=== PATIENT | male | born 1955 | race Caucasian/White ===

== ENCOUNTER 2016-04-22 05:27 | Inpatient (IN) ==
[2016-04-22 05:40] LABS: Basophils # 0.1 K/mcL (0.0-0.2); Eosinophils # 0.5 K/mcL (0.0-0.6); Eosinophils % 6.4 %; Hematocrit 41.6 % (37.5-50.1); Hemoglobin 13.6 g/dL (12.9-16.9); Immature Granulocytes % 0.4 % (0-4); Lymphocytes # 2.1 K/mcL (0.6-4.6); Lymphocytes % 29.5 %; Mean Corpuscular HGB Conc 32.7 g/dL (31.6-35.5); Mean Corpuscular Hemoglobin 30.2 pg (28.0-33.3); Mean Corpuscular Volume 92.4 fL (83.0-100.0); Monocytes # 0.6 K/mcL (0.0-1.3); Monocytes % 8.3 %; Neutrophils # 3.7 K/mcL (1.6-8.9); Platelet Count 234 K/mcL (140-400); Red Cell Distribution Width 13.1 % (11.5-14.5); Segmented Neutrophils % 53.4 %
[2016-04-22 05:46] LABS: INR 0.9
[2016-04-22 05:49] LABS: Activated Partial Thrombo Time 30.3 Seconds (26.0-36.0)
--- NOTE | 2016-04-22 05:52 | Emergency Department Note ---
Disposition Clinical Impression: CVA (cerebral vascular accident) Qualifiers: CVA mechanism: unspecified Qualified Code(s): I63.9 - Cerebral infarction, unspecified Disposition: Admitted As Inpatient Condition: Fair Referrals: NO,PCP [Primary Care Provider] - Forms: ED Satisfaction Letter Neuro HPI - General Chief Complaint: ED Neuro Symptoms/Deficit Stated Complaint: Left Sided Weakness Time Seen by Provider: 04/22/16 05:28 Source: patient, EMS Limitations: no limitations Nursing Notes Reviewed: Yes Vital Signs Reviewed: Yes - History of Present Illness HPI Narrative: Patient here for evaluation of neurologic deficits. Patient has a history of multiple TIAs. She has a history of A. fib on sotalol but has not been on Zaroxolyn for the last 2 months due to financial reasons. Patient states last night at 7:30 PM he noticed right-sided visual changes. Patient has had TIAs in the past so did not think much about it. Patient awoke with left-sided vision changes and weakness of the left side. Girlfriend noticed asymmetry of the face and convince the patient to come to the hospital for evaluation. Last known well at 7:30 last night. Patient has not history of TIAs and atrial fibrillation. Patient on sotalol. Patient currently in sinus rhythm. All systems ED: reviewed and negative except as stated. Constitutional: Denies: fever, chills Eyes: Reports: vision change. Denies: eye pain ENT ED: Denies: ear pain, throat pain Cardiovascular: Denies: chest pain Respiratory: Denies: cough, dyspnea Gastrointestinal: Denies: abdominal pain, nausea Genitourinary: Denies: urgency, dysuria Musculoskeletal: Denies: back pain Integumentary: Denies: rash, abrasion Neurological: Reports: weakness, numbness, other (dysarthria) Psychiatric: Denies: anxiety Endocrine: Denies: fatigue Past Medical History - Past Medical History Medical history: Reports: atrial fibrillation, TIA Psychiatric history: Reports: no psych history - Social History Smoking Status: Never smoker Smokeless Tobacco Status: No Alcohol use: Reports: occasionally Drug use: Reports: none Physical Exam - General Limitations: no limitations General appearance: alert - Head Head exam: atraumatic, normocephalic - Eye Eye exam: Present: normal appearance, other (left lateral vision loss.) - ENT ENT exam: normal exam, mucous membranes moist - Neck Neck exam: Present: normal inspection. Absent: tenderness - Chest Chest inspection: Present: normal inspection, symmetric chest wall rise. Absent : tenderness - Respiratory Respiratory exam: Present: normal lung sounds bilaterally. Absent: respiratory distress, wheezes - Cardiovascular Cardiovascular exam: Present: regular rate, normal rhythm - Abdominal Exam Abdominal exam: Present: soft, Non-Tender - Extremities Exam Extremities exam: Present: normal inspection - Neurological Exam Neurological exam: Present: alert, oriented X3 - Expanded Neurological Exam Patient oriented to: Present: person, place, time Speech: Present: expressive aphasia Cranial nerves: EOM function (II, III, IV, ): Normal, facial sensation (V): Abnormal Left, facial palsy (VII): Abnormal Left, gag reflex (IX): Normal, spinal accessory function (XI): Normal, tongue deviation (XII): Normal Cerebellar function: finger to nose: Normal, heel to brito: Normal Motor strength - LUE: 5/5 Motor strength - RUE: 5/5 Motor strength - LLE: 5/5 Motor strength - RLE: 5/5 Upper motor neuron exam: pronator drift: Absent bilaterally Sensory exam upper extremity: light touch: Abnormal Left Sensory exam lower extremity: light touch: Normal Coma Scale Eye Opening: Spontaneous Coma Scale Motor Response: Obeys Commands Coma Scale Verbal Response: Oriented Coma Scale Total: 15 - Psychiatric Psychiatric exam: Present: other (pt unphased by symptoms or exam) - Skin Skin exam: Present: warm, dry Course - Consultations Consultation #1: Discussed with Dr. Lorenzo. Pt accepted. Vital Signs Temperature 97.7 F 04/22/16 05:28 Pulse Rate 64 04/22/16 05:28 Respiratory Rate 16 04/22/16 05:28 Blood Pressure 129/98 04/22/16 05:28 O2 Sat by Pulse Oximetry 98 04/22/16 05:28 Temperature 97.7 F 04/22/16 05:28 Pulse Rate 65 04/22/16 06:28 Respiratory Rate 18 04/22/16 06:28 Blood Pressure 130/95 04/22/16 06:28 O2 Sat by Pulse Oximetry 96 04/22/16 06:28 Oxygen Delivery Oxygen Delivery Room Air Neuro Symptoms/Deficit - Medical Records Medical records reviewed: Yes I reviewed the patient's medical records. - Lab Data Lab results reviewed: Yes I reviewed the patient's lab results. Result diagrams: 04/22/16 05:33 04/22/16 05:33 Lab Results 04/22/16 04/22/16 04/22/16 Range/Units 05:29 05:33 05:33 WBC 7.0 (4.3-11.1) K/mcL RBC 4.50 (4.19-5.50) M/mcL Hgb 13.6 (12.9-16.9) g/dL Hct 41.6 (37.5-50.1) % MCV 92.4 (83.0-100.0) fL MCH 30.2 (28.0-33.3) pg MCHC 32.7 (31.6-35.5) g/dL RDW 13.1 (11.5-14.5) % Plt Count 234 (140-400) K/mcL MPV 10.0 (9.4-12.4) fL Immature Gran % 0.4 (0-4) % Seg Neutrophils % 53.4 % Lymphocytes % 29.5 % Monocytes % 8.3 % Eosinophils % 6.4 % Basophils % 2.0 % Neutrophils # 3.7 (1.6-8.9) K/mcL Lymphocytes # 2.1 (0.6-4.6) K/mcL Monocytes # 0.6 (0.0-1.3) K/mcL Eosinophils # 0.5 (0.0-0.6) K/mcL Basophils # 0.1 (0.0-0.2) K/mcL PT 10.0 (9.4-12.1) Seconds INR 0.9 APTT 30.3 (26.0-36.0) Seconds Sodium (136-145) mEq/L Potassium (3.5-4.5) mEq/L Chloride (98-109) mEq/L Carbon Dioxide (19-29) mEq/L BUN (8-26) mg/dL Creatinine (0.72-1.25) mg/dL Est GFR ( Amer) (> 60) Est GFR (Non-Af Amer) (> 60) BUN/Creatinine Ratio (6-26) Glucose (70-99) mg/dL POC Glucose 122 H (58-89) Calculated Osmolality (280-300) Calcium (8.6-10.8) mg/dL Troponin I (0-0.03) ng/mL 04/22/16 04/22/16 Range/Units 05:33 05:33 WBC (4.3-11.1) K/mcL RBC (4.19-5.50) M/mcL Hgb (12.9-16.9) g/dL Hct (37.5-50.1) % MCV (83.0-100.0) fL MCH (28.0-33.3) pg MCHC (31.6-35.5) g/dL RDW (11.5-14.5) % Plt Count (140-400) K/mcL MPV (9.4-12.4) fL Immature Gran % (0-4) % Seg Neutrophils % % Lymphocytes % % Monocytes % % Eosinophils % % Basophils % % Neutrophils # (1.6-8.9) K/mcL Lymphocytes # (0.6-4.6) K/mcL Monocytes # (0.0-1.3) K/mcL Eosinophils # (0.0-0.6) K/mcL Basophils # (0.0-0.2) K/mcL PT (9.4-12.1) Seconds INR APTT (26.0-36.0) Seconds Sodium 144 (136-145) mEq/L Potassium 4.7 H (3.5-4.5) mEq/L Chloride 111 H (98-109) mEq/L Carbon Dioxide 26 (19-29) mEq/L BUN 19 (8-26) mg/dL Creatinine 1.01 (0.72-1.25) mg/dL Est GFR ( Amer) > 60 (> 60) Est GFR (Non-Af Amer) > 60 (> 60) BUN/Creatinine Ratio 19 (6-26) Glucose 112 H (70-99) mg/dL POC Glucose (58-89) Calculated Osmolality 301 H (280-300) Calcium 9.4 (8.6-10.8) mg/dL Troponin I 0.01 (0-0.03) ng/mL - Radiology Data Radiology results reviewed: Yes I reviewed the patient's radiology results. - EKG Data EKG attestation: Yes I reviewed and interpreted this EKG. EKG results narrative: EKG shows sinus rhythm with rate of 63 bpm. ND interval 160. QRS 92. QTC 459. No previous EKG. NIH Stroke Scale - Level of Consciousness LOC: Alert - LOC Questions LOC Questions: Answers both correctly - LOC Commands LOC Commands: Performs both correctly - Best Gaze Best Gaze: Normal - Visual Visual: Partial hemianopia - Facial Palsy Facial Palsy: Minor asymmetry on smiling, flattened nasolabial fold - Motor Arms Motor Arm-Left: No drift for 10 seconds - Motor Legs Motor Leg-Left: No drift for 5 seconds - Limb Ataxia Limb Ataxia: Absent of affected limb too weak to perform exam - Sensory Sensory: Mild to moderate loss, "not as sharp" - Best Language Best Language: No aphasia - Dysarthria Dysarthria: Mild, slurs some words - Extinction and Inattention Extinction and Inattention: Normal TPA Checklist - LKW: 3-4.5 hrs Add. Contraindications Patient/family understanding: The patient/family members have been counseled and understood the risk, benefit , and alternatives of treatment.
[2016-04-22 05:54] LABS: BUN/Creatinine Ratio 19 (6-26); Blood Urea Nitrogen 19 mg/dL (8-26); Calcium 9.4 mg/dL (8.6-10.8); Carbon Dioxide 26 mEq/L (19-29); Chloride 111 mEq/L (98-109); Glucose 112 mg/dL (70-99); Osmolality,Calculated 301 (280-300); Potassium 4.7 mEq/L (3.5-4.5); Sodium 144 mEq/L (136-145); eGFR For African Americans > 60 (> 60); eGFR For Non-African Americans > 60 (> 60)
--- NOTE | 2016-04-22 06:10 | Emergency Department Note ---
START Narrative - START START: 60-year-old male [id number] by EMS for strokelike symptoms since 7:30 yesterday. Had peripheral visual disturbances then left paramedian paresthesias and paresis. Prior TIAs in the past. Patient's CT shows no acute process labs were essentially within normal limits hospitalist page patient to be admitted for acute CVA versus TIA. This is not a stroke alert based on the time since yesterday evening. We provided 45 minutes of critical care services for this patient.
--- NOTE | 2016-04-22 08:55 | Internal Med History&Physical ---
<Princess Best - Last Filed: 04/22/16 10:04> Date of Encounter: 04/22/16 Time of Encounter: 08:20 Assessment and Plan (1) CVA (cerebral vascular accident) Current visit: Yes Status: Acute - With left homonymous hemianopsia, left facial droop and slurred speech. - Most likely secondary to A-fib thrombi due to lack of adequate anticoagulation. - CT head found no acute intracranial abnormality. - Further stroke work-up: MRI brain without contrast, echocardiogram and bilateral carotid duplex. - Neurology has been consulted. Appreciate neurology input, especially regarding when to restart anticoagulation. - Start aspirin and statin. - PT/OT/speech therapy to evaluate and treat. - Okay to resume diet given patient passed bedside swallow evaluation. - Frequent neuro check and closely monitor including telemetry. Qualifiers: CVA mechanism: unspecified Qualified Code(s): I63.9 - Cerebral infarction, unspecified (2) Paroxysmal atrial fibrillation Current visit: Yes Status: Acute - Currently in sinus rhythm. - Continue Sotalol. - Continue telemetry monitoring. - Case was discussed with Dr. Yan Gonzalez of [facility] regarding long- term anticoagulation choice. Dr. Gonzalez recommends Coumadin. - Appreciate neurology input about when to restart anticoagulation. (3) DVT prophylaxis Current visit: Yes Status: Acute - EPCD for now until further clarification by neurology regarding when to restart anticoagulation. Internal Medicine - H&P: HPI Chief complaint: Stroke Admitted From: Home Plans for Post Hospital Care: Home History of present illness: Mr. Betancur is a 60 year old male with PMH of paroxysmal A-fib on Sotalol but off from Xarelto for two months due to financial problem. Last night patient had right peripheral vision loss which resolved later. Patient feels some right facial tingling when he woke up and went to restroom at around 3:30 am. And patient was noticed to have slurred speech and left facial droop by his girlfriend. Upon my encounter with patient, he still feels some right lower face tingling but states no vision problem. Per patient's girlfriend, patient's speech is still not back to his baseline. He denies focal weakness and other numbness/tingling. Patient denies chest pain, palpitation, dyspnea, headache, nausea/vomiting. Patient reports having history of TIA in the past, with first time affecting right peripheral vision and second time with left hand weakness, both resolved within hours. Past Med Surg Social Fam HX - Past Medical History Medical history: atrial fibrillation (Paroxysmal), TIA Psychiatric history: no psych history - Past Surgical History Surgical History: cataract - Social History Smoking Status: Former smoker Packs per day: used to smoke 1&1/2 pack/day for 30 years, quitted 10 years ago. Smokeless Tobacco Status: No Alcohol use: occasionally Drug use: none - Family History Father Living Status: Hx Family Cancer: Yes (Cancer) Brother Hx Family Cardiac Disorders: Yes (Heart disease) Internal Medicine - H&P: Meds Aspirin 81 mg PO DAILY 04/22/16 [History] Multivitamin [Multi-Day Vitamins] 1 tab PO DAILY 04/22/16 [History] Plant Stanol Elise [Cholest Off] 450 mg PO DAILY 04/22/16 [History] Saw/Vit E/Sod Karine/Lyc/Beta/Pyg [Prostate Health Caplet] 1 tab PO DAILY 04/22/16 [History] Sotalol HCl [Betapace] 120 mg PO Q12H 04/22/16 [History] Allergies No Known Allergies Allergy (Verified 04/22/16 07:17) All Systems PM: A 10-system review of systems was performed and is negative for pertinent findings except as documented above in the HPI. - Constitutional Constitutional: no anorexia, no chills, no fever(s) - EENT Eyes: no change in vision (Patient reports no vision change today) Ears: no decreased hearing Nose, mouth and throat: no dysphagia - Cardiovascular Cardiovascular ROS IM: no chest pain, no edema, no palpitations, no syncope - Respiratory Respiratory: no cough, no dyspnea, no hemoptysis - Gastrointestinal Gastrointestinal: no abdominal pain, no diarrhea, no hematochezia, no melena, no nausea, no vomiting - Genitourinary Genitourinary ROS male: no difficulty urinating, no dysuria, no hematuria - Musculoskeletal Musculoskeletal ROS IM: no arthralgias, no myalgias - Integumentary Integumentary IM: no pruritus, no rash - Neurological Neurological ROS: no focal weakness, no numbness, no tingling - Hematologic/Lymphatic Hematologic/Lymphatic: no easy bleeding, no easy bruising - Constitutional Vitals: Temp Pulse Resp BP Pulse Ox 97.8 F 65 17 146/92 97 04/22/16 07:32 04/22/16 07:32 04/22/16 07:32 04/22/16 07:32 04/22/16 07:32 General appearance: Present: cooperative, A&O X 3, no acute distress, answers questions appropriately - Head Head exam: Present: atraumatic, normocephalic - Eye Eye exam: Present: PERRL, conjuntiva pink, sclera anicteric - Neck Neck exam general surgery: Present: supple, trachea midline. Absent: lymphadenopathy - Respiratory Respiratory exam: Present: CTAB. Absent: accessory muscle use, rales, rhonchi, wheezes - Cardiovascular Cardiovascular exam: Present: RRR, +S1, +S2. Absent: diastolic murmur, gallop, rubs, systolic murmur - GI/Abdominal GI/Abdominal exam: Present: normal bowel sounds, soft, no peritoneal signs. Absent: distended, tenderness - Extremities Exam Extremities exam: Present: warm, radial pulses palpable and symetrical. Absent : calf tenderness, cyanotic, pedal edema - Neurological Exam Neurological exam: Present: oriented X3. Absent: pronater drift, facial droop, speech deficit - Skin Skin exam: Present: dry, intact Internal Med - H&P Results - Labs CBC & Chem 7: 04/22/16 05:33 04/22/16 05:33 <Tu John - Last Filed: 04/22/16 10:25> Date of Encounter: 04/22/16 Internal Medicine - H&P: HPI History of present illness: Mr. Betancur is a 60 year old male All Systems PM: A 10-system review of systems was performed and is negative for pertinent findings except as documented above in the HPI. - Constitutional Vitals: Temp Pulse Resp BP Pulse Ox 97.8 F 65 17 146/92 97 04/22/16 07:32 04/22/16 07:32 04/22/16 07:32 04/22/16 07:32 04/22/16 07:32 Internal Med - H&P Results - Labs CBC & Chem 7: 04/22/16 05:33 04/22/16 05:33 - Attending Attestation I have seen and examined this patient independently. I have discussed the case with the resident, Dr. Best. I agree with the data gathering in the HPI, physical examination findings, assessment and plan as documented by the resident. History of a fib not taking xarelto due to financial reasons. Needs jail AC, might consider coumadin. Will get MRI and neuro consult. The plan of care was discussed in detail with the patient and his family members, they expressed understanding.
[2016-04-22] MEDS ORDERED: Aspirin 325 MG TABLET PO ONE (08:58)
[2016-04-22] MEDS ORDERED: Ondansetron 4 MG/2 ML VIAL IVP PRN (09:10)
[2016-04-22 09:31] LABS: Chol/HDL Ratio 4.4 (0-4.9); Cholesterol 243 mg/dL (< 200); HDL Cholesterol 55 mg/dL (40-59); LDL Cholesterol,Calculated 169 mg/dL (0-99); Triglycerides 97 mg/dL (< 150)
[2016-04-22] MEDS: Acetaminophen 325 MG TABLET PO PRN ×2 (11:27→22:04)
--- NOTE | 2016-04-22 11:44 | Electrocardiograph Report ---
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
--- NOTE | 2016-04-22 15:45 | Neurology - Consult Note ---
Date of Encounter: 04/22/16 Time of Encounter: 15:41 Assessment and Plan (1) CVA (cerebral vascular accident) Current Visit: Yes Status: Acute Unfortunately Mr. Torres has experienced a large infarction involving the territory of the right posterior cerebral artery. I believe that this is due to a cardioembolic phenomenon. He has a history of atrial fibrillation, and has unfortunately not been able to afford his Xarelto for 2 months now. He has been taking aspirin apparently thinking that this would suffice however it has not. Of course if anticoagulation is the treatment of choice for atrial fibrillation. In this case however it is advisable to wait for 3-5 days after a large infarction before reintroducing anticoagulation. The likelihood of early re-embolization is probably low. This gentleman may unfortunately have permanent left hemianopsia. This may affect his driving abilities. Visual field testing should be completed after discharge. Carotid duplex Doppler and echocardiogram pending. The documentation in the history of HPI and plan were at least partially created by [employer] voice recognition technology by Dr. Mendez. Errors in grammar, wording or other phrases may exist. If errors are found after the documentation signed, they will be addressed individually in the addendum section of this document when appropriate. Qualifiers: Qualified Code(s): I63.9 - Cerebral infarction, unspecified History of Present Illness HPI: Mr. Betancur is a 60 year old male who is being seen for neurological consultation secondary to an acute right cerebral hemispheric infarct. Apparently on the day prior to admission which was [id number] he identified some paresthesias first the right face. He had a left facial droop. He also developed a headache and had some difficulty with speech. His girlfriend was present and corroborates this story. He still has a mild headache. At this time denies any paresthesias or weakness. MRI scan of the brain was obtained acutely and is a very large infarct in the region of the right posterior cerebral artery. There is also laminar necrosis present within the infarct. The patient at this time is awake and alert and has no evidence of encephalopathy. He has a known history of atrial fibrillation, however has not been able to afford his medicines due to financial hardships in about 2 months ago. He is already been given aspirin today. Apparently he did not seek immediate medical attention and therefore is not a candidate for thrombolytic therapies. Past Med Surg Social Fam HX - Past Medical History Medical history: atrial fibrillation (Paroxysmal), TIA Psychiatric history: no psych history - Past Surgical History Surgical History: cataract - Social History Smoking Status: Former smoker Packs per day: used to smoke 1&1/2 pack/day for 30 years, quitted 10 years ago. Smokeless Tobacco Status: No Alcohol use: occasionally Drug use: none - Family History Father Living Status: Hx Family Cancer: Yes (Cancer) Brother Hx Family Cardiac Disorders: Yes (Heart disease) Medications and Allergies Aspirin 81 mg PO DAILY 04/22/16 [History] Multivitamin [Multi-Day Vitamins] 1 tab PO DAILY 04/22/16 [History] Plant Stanol Elise [Cholest Off] 450 mg PO DAILY 04/22/16 [History] Saw/Vit E/Sod Karine/Lyc/Beta/Pyg [Prostate Health Caplet] 1 tab PO DAILY 04/22/16 [History] Sotalol HCl [Betapace] 120 mg PO Q12H 04/22/16 [History] Allergies No Known Allergies Allergy (Verified 04/22/16 07:17) All Systems: A 10-system review of systems was performed and is negative for pertinent findings except as documented above in the HPI. Review of Systems: Patient does complain of mild right hemicranial headache, and also identifies some difficulty with a left visual field deficit. Otherwise, the remaining systems reviewed are all negative. Physical Examination - Vital Signs Vital Signs: Initial Vital Signs Temp Pulse Resp BP Pulse Ox 97.7 F 64 16 129/98 98 04/22/16 05:28 04/22/16 05:28 04/22/16 05:28 04/22/16 05:28 04/22/16 05:28 - Neurologic Detailed motor examination: full strength in all major muscle groups Motor examination - right side: 5/5: deltoids, biceps, triceps, wrist flexion, wrist extension, coper hand, hip flexors, tibialis Anterior, quadriceps, toe extension (EHL), plantarflexion Motor examination - left side: 5/5: deltoids, biceps, triceps, wrist flexion, wrist extension, hip flexors, coper hand, quadriceps, tibialis Anterior, toe extension (EHL), plantarflexion Detailed sensory examination: other (Left homonomous hemianopsia.) Reflexes: Biceps: 2+, Triceps: 2+, Brachioradialis: 2+, Patella: 2+, Achilles: 2 + Mental Status Examination: awake, alert, oriented to person, oriented to place, oriented to time, follows commands appropriately, answers questions appropriately, no agnosia, no aphasia, no aproxia Cranial nerve examination: PERRL, EOMI, corneal reflexes brisk symmetrically, sensory to face intact, mastication intact, no facial asymmetry is present, no dysarthria, hearing is intact symmetrically, soft palate elevates bilaterally upon phonation, tongue protrudes midline Cerebellar examination: no dysmetria, performs finger to nose and heel to brito symmetrically without ataxia, no gait ataxia, no truncal ataxia, no difficulty with rapid alternating movements Results - Laboratory Findings CBC and BMP: 04/22/16 05:33 04/22/16 05:33 Abnormal lab findings: Abnormal lab results Potassium 4.7 mEq/L (3.5-4.5) H 04/22/16 05:33 Chloride 111 mEq/L (98-109) H 04/22/16 05:33 Glucose 112 mg/dL (70-99) H 04/22/16 05:33 POC Glucose 122 (58-89) H 04/22/16 05:29 Calculated Osmolality 301 (280-300) H 04/22/16 05:33 Cholesterol 243 mg/dL (< 200) H 04/22/16 05:33 LDL Cholesterol, Calc 169 mg/dL (0-99) H 04/22/16 05:33 Consult Discharge Plan - Plan Referrals: NO,PCP [Primary Care Provider] -
--- NOTE | 2016-04-22 17:50 | Carotid Imaging Report ---
Carotid Duplex Patient Name:Harsh Betancur Order Number:[id number] Procedure Date:04/22/2016 Date:1955ge:60 yrs Gender:Male Lt BP:118 / 75 mmHg Rt.BP:113 / 72 mmHgHeart Rate: Location:[facility] Room #: 3B37 Vocational Services Specialist:Cynthia Jennings Referring MD:Princess Best DO adult secondary education instructor:None Reading MD:Aj Cameron MD Primary Indications:CVA Risk Factors Yes/No Smoker Previous Yes Impressions: The bilateral carotid arteries have minimal plaque throughout. Recommendations: Preliminary noted in patient EMR. Test completed on 04/22/2016 at 4:34:00 pm. Findings Carotid Duplex: Right: The right proximal common carotid artery has a PSV of 106 cm/s and a EDV of 18 cm/s. The right mid common carotid artery has a PSV of 124 cm/s and a EDV of 30 cm/s. The right distal common carotid artery has a PSV of 97 cm/s and a EDV of 29 cm/s. There is nonstenotic plaque in the right bifurcation with a PSV of 56 cm/s and a EDV of 12 cm/s. There is irregular heterogeneous plaque. The right proximal internal carotid artery has a PSV of 60 cm/s and a EDV of 21 cm/s. The right mid internal carotid artery has a PSV of 58 cm/s and a EDV of 24 cm/s. The right distal internal carotid artery has a PSV of 60 cm/s and a EDV of 22 cm/s. The right eca has a PSV of 93 cm/s and a EDV of 24 cm/s. The right vertebral artery has a PSV of 42 cm/s and a EDV of 14 cm/s. There is antegrade spectral Doppler flow patterns. Left: The left proximal common carotid artery has a PSV of 117 cm/s and a EDV of 37 cm/s. The left mid common carotid artery has a PSV of 114 cm/s and a EDV of 37 cm/s. The left distal common carotid artery has a PSV of 124 cm/s and a EDV of 43 cm/s. There is nonstenotic plaque in the left bifurcation with a PSV of 93 cm/s and a EDV of 32 cm/s. The left proximal internal carotid artery has a PSV of 93 cm/s and a EDV of 26 cm/s. The left mid internal carotid artery has a PSV of 71 cm/s and a EDV of 28 cm/s. The left distal internal carotid artery has a PSV of 58 cm/s and a EDV of 25 cm/s. The left eca has a PSV of 90 cm/s and a EDV of 25 cm/s. The left vertebral artery has a PSV of 60 cm/s and a EDV of 21 cm/s. There is antegrade spectral Doppler flow patterns. Prior Study: No prior study available for comparison. Carotid Results Right PSV EDV Assessment Proximal CCA 106 18 Mid CCA 124 30 Distal CCA 97 29 Bifurcation 56 12 Non Stenotic Plaque Proximal ICA 60 21 Mid ICA 58 24 Distal ICA 60 22 ECA 93 24 Vertebral Artery 42 14 Antegrade Flow Left PSV EDV Assessment Proximal CCA 117 37 Mid CCA 114 37 Distal CCA 124 43 Bifurcation 93 32 Non Stenotic Plaque Proximal ICA 93 26 Mid ICA 71 28 Distal ICA 58 25 ECA 90 25 Vertebral Artery 60 21 Antegrade Flow Ratio's Right ICA/CCA Ratio: 0.48 ICA/CCA Values: 60/124 Left ICA/CCA Ratio: 0.82 ICA/CCA Values: 93/114 Updated by Aj Cameron MD on 04/22/2016 5:44:15 PM electronically signed on 04/22/2016 5:44:29 PM with status of Final
[2016-04-23 05:18] LABS: Basophils # 0.1 K/mcL (0.0-0.2); Basophils % 1.5 %; Eosinophils # 0.3 K/mcL (0.0-0.6); Eosinophils % 3.5 %; Hematocrit 39.6 % (37.5-50.1); Hemoglobin 13.3 g/dL (12.9-16.9); Immature Granulocytes % 0.3 % (0-4); Lymphocytes # 2.3 K/mcL (0.6-4.6); Lymphocytes % 26.5 %; Mean Corpuscular HGB Conc 33.6 g/dL (31.6-35.5); Mean Corpuscular Hemoglobin 30.9 pg (28.0-33.3); Mean Corpuscular Volume 92.1 fL (83.0-100.0); Mean Platelet Volume 10.7 fL (9.4-12.4); Monocytes # 0.7 K/mcL (0.0-1.3); Monocytes % 7.5 %; Neutrophils # 5.3 K/mcL (1.6-8.9); Platelet Count 218 K/mcL (140-400); Red Cell Distribution Width 13.2 % (11.5-14.5); Segmented Neutrophils % 60.7 %
[2016-04-23 05:36] LABS: Alanine Aminotransferase 21 Units/L (0-55); Albumin/Globulin Ratio 0.9 (1.1-2.2); Alkaline Phosphatase 86 Units/L (38-126); Aspartate Amino Transferase 20 Units/L (5-34); BUN/Creatinine Ratio 15 (6-26); Bilirubin,Total 0.5 mg/dL (0.2-1.2); Blood Urea Nitrogen 15 mg/dL (8-26); Calcium 8.8 mg/dL (8.6-10.8); Carbon Dioxide 25 mEq/L (19-29); Chloride 108 mEq/L (98-109); Globulin 3.4 g/dL (2.4-3.5); Glucose 105 mg/dL (70-99); Osmolality,Calculated 293 (280-300); Sodium 141 mEq/L (136-145); Total Protein 6.4 g/dL (6.0-8.3); eGFR For African Americans > 60 (> 60); eGFR For Non-African Americans > 60 (> 60)
--- NOTE | 2016-04-23 07:24 | ECHO - Doppler Report ---
Echocardiogram Name: Harsh Betancur Date of Study: 04/22/2016 Date: 1955 Ht: 72.0 in Medical Record#: [id number] Age: 60 Wt: 198.0 lb Gender: Male BSA: 2.12 Order #: [id number] Location: [facility] Room #: 3B37 Reading Physician: Sebastian Lacey MD, [facility] Tableau Report Developer: Cynthia Jennings Ordering Physician: Princess Best DO Primary Physician: None Indications: Cerebrovascular Accident Impressions: Normal left ventricular size and systolic function, LVEF 60-65%. Normal left ventricular diastolic function. Normal right ventricular size and function. Mild mitral regurgitation. No evidence of pulmonary hypertension. Patient refused agitated saline contrast study. Left Ventricular Wall Motion: Rest Echo Findings All wall segments showed normal motion. Findings: Study Quality * Technically adequate exam. ECG Findings * Sinus rhythm and sinus bradycardia. Left Ventricle * Normal left ventricular size and systolic function, LVEF 60-65%. * Normal LV wall thickness. * Normal left ventricular diastolic function. Right Ventricle * Normal right ventricular size and function. Left Atrium * Normal left atrial size. Right Atrium * Normal right atrial size. Aorta * Normally sized aortic root. Pericardium * There is no pericardial effusion present. IVC * The IVC is not well evaluated. Aortic Valve * Trileaflet aortic valve. * No aortic stenosis. * No aortic regurgitation. Mitral Valve * Normal mitral valve structure. * No mitral stenosis. * Mild mitral regurgitation. Tricuspid Valve * Tricuspid valve not well visualized. * No tricuspid stenosis. * Trace tricuspid regurgitation. * No evidence of pulmonary hypertension. Pulmonic Valve * Pulmonic valve not well visualized. * No pulmonic stenosis. * No pulmonic regurgitation. Interatrial Septum * Patient refused agitated saline contrast study. History Family History of CAD 08/25/2015 a Previous Echo was performed. Measurements: BP: 113/ 72 2D Normal Values RVIDd: 2.62 cm IVSd: 1.00 cm 0.6 - 1.0 cm LVIDd: 5.50 cm 3.7 - 5.6 cm LVPWd: .90 cm 0.6 - 1.1 cm LVIDs: 3.20 cm 1.5 - 3.6 cm AO: 3.10 cm < 4.0 cm LA volume: 50 Mitral Valve Peak E:.77 m/sec Peak A:.64 m/sec E/A Ratio:1.2 Peak E' Lat Nicolas:12.9 cm/s Peak E' Med Nicolas:8.95 cm/s E/E' Lat Ratio:6 E/E' Med Ratio:8.6 Tricuspid Valve TV Regurg Peak Grad: 25.00mmHg TV Regurg Peak Nicolas: 2.50m/sec Updated by Sebastian Lacey MD, [facility] on 04/23/2016 7:11:45 AM electronically signed on 04/23/2016 7:20:18 AM with status of Final Wall Motion Mcclelland: 1=Normal, 2=Hypokinesis, 3=Akinesis, 4=Dyskinesis, 5=Aneurysmal, 6=Hyperkinetic, X=Not Visualized (Blank)=Missing
[2016-04-23] MEDS: Aspirin 81 MG TAB.CHEW PO SCH (09:10)
--- NOTE | 2016-04-23 09:45 | Internal Med Progress Note ---
<Maryana Lyons - Last Filed: 04/23/16 11:06> Date of Encounter: 04/23/16 Time of Encounter: 08:45 - Assessment and plan (1) CVA (cerebral vascular accident) Current Visit: Yes Status: Acute Assessment and plan: Pt has history of atrial fibrillation and has not been able to afford his Xarelto for two months Continued left homonymous hemianopsia Left facial droop and slurred speech improved CT head found no acute intracranial abnormality MRI brain demonstrated moderate sized acute infarct ivolving posterior aspect of right temporal lobe, possible component of cotical laminar necrosis, mild atrophy Carotid duplex demonstrated minimal plaque thorughout bilateral carotid arteries Echo demonstrated EF of 60-65%, normal left ventricular diastolic function, normal right ventricular size and function, mild mitral regurgitation, no evidence of pulmonary hypertension Neurology consulted: Reported it is advisable to wait 3-5 days after a large infarction before reintroducing anticoagulation, recommended visual field testing to be completed after discharge PT/OT, Speech, Social work consulted Qualifiers: CVA mechanism: unspecified Qualified Code(s): I63.9 - Cerebral infarction, unspecified (2) Paroxysmal atrial fibrillation Current Visit: Yes Status: Acute Assessment and plan: Continue Sotalol Irregular rhythm on exam, pulse rate 135 at 0639 this morning prior to receiving medication, will continue to monitor and make adjustments accordingly Case was discussed with Dr. Yan Gonzalez of [facility] regarding long-term anticoagulation choice and Coumadin was recommended. Will follow neurology recommendation on when to restart anticoagulation (3) DVT prophylaxis Current Visit: Yes Status: Acute Assessment and plan: EPCD for now - Subjective Interval history: Pt resting comfortably in bed. Admits to headache and not being able to see anything in his left visual field. He denies any weakness, numbness or tingling. - Constitutional Vitals: Temp Pulse Resp BP Pulse Ox 98.7 F 135 16 118/77 95 04/23/16 06:39 04/23/16 06:39 04/23/16 06:39 04/23/16 06:39 04/23/16 06:39 General appearance: Present: cooperative, A&O X 3, no acute distress, answers questions appropriately - Head Head exam: Present: atraumatic, normocephalic - Eye Eye exam: Present: PERRL, conjuntiva pink, sclera anicteric Pupils: Present: PERRL - Neck Neck exam general surgery: Present: supple, trachea midline. Absent: lymphadenopathy - Respiratory Respiratory exam: Present: CTAB. Absent: accessory muscle use, rales, rhonchi, wheezes - Cardiovascular Cardiovascular exam: Present: irregular rhythm. Absent: diastolic murmur, gallop, rubs, systolic murmur - GI/Abdominal GI/Abdominal exam: Present: normal bowel sounds, soft, no peritoneal signs. Absent: distended, tenderness - Extremities Exam Extremities exam: Present: warm, radial pulses palpable and symetrical. Absent : calf tenderness, cyanotic, pedal edema - Neurological Exam Neurological exam: Present: alert, oriented X3, strengths equal and symetr throughout. Absent: pronater drift, facial droop, speech deficit Additional comments: Deficit in left visual field - Skin Skin exam: Present: dry, intact Internal Medicine: Result - Labs CBC & Chem 7: 04/23/16 03:59 04/23/16 03:59 Labs: Short CBC 04/23/16 Range/Units 03:59 WBC 8.8 (4.3-11.1) K/mcL Hgb 13.3 (12.9-16.9) g/dL Hct 39.6 (37.5-50.1) % Plt Count 218 (140-400) K/mcL Neutrophils # 5.3 (1.6-8.9) K/mcL BMP 04/23/16 03:59 Sodium 141 Potassium 4.0 Chloride 108 Carbon Dioxide 25 BUN 15 Creatinine 1.03 Glucose 105 H Calcium 8.8 Liver Function 04/23/16 Range/Units 03:59 Total Bilirubin 0.5 (0.2-1.2) mg/dL AST 20 (5-34) Units/L ALT 21 (0-55) Units/L Alkaline Phosphatase 86 (38-126) Units/L Albumin 3.0 L (3.5-5.0) g/dL - ABG Interpretation ABG results: PT/INR, D-dimer PT 10.0 Seconds (9.4-12.1) 04/22/16 05:33 - Impressions Impressions Brain MRI 04/22/16 08:55 IMPRESSION: Moderate-sized acute infarct involving the posterior aspect of the right temporal lobe. There may be a component of cortical laminar necrosis. Mild atrophy. D/ / 04/22/2016 11:18:22 Rommel Tyler MD / neeru Interpreting Provider: Rommel Tyler MD Consult Discharge Plan - Plan Referrals: NO,PCP [Primary Care Provider] - <Lui Diana - Last Filed: 04/23/16 17:26> Date of Encounter: 04/23/16 - Assessment and plan (1) CVA (cerebral vascular accident) Current Visit: Yes Status: Acute Qualifiers: CVA mechanism: embolism Precerebral and cerebral artery: posterior cerebral artery Laterality of affected vessel: right Qualified Code(s): I63.431 - Cerebral infarction due to embolism of right posterior cerebral artery (2) Paroxysmal atrial fibrillation Current Visit: Yes Status: Acute - Constitutional Vitals: Temp Pulse Resp BP Pulse Ox 98.8 F 132 16 109/73 97 04/23/16 15:40 04/23/16 15:40 04/23/16 15:40 04/23/16 15:40 04/23/16 15:40 Internal Medicine: Result - Labs CBC & Chem 7: 04/23/16 03:59 04/23/16 03:59 - ABG Interpretation ABG results: PT/INR, D-dimer PT 10.0 Seconds (9.4-12.1) 04/22/16 05:33 - Attending Attestation I examined this patient and my medical decision-making was reviewed with the Resident Physician. I agree with the documented findings, disposition and treatment plan as described except to the extent set forth below. Mr. Betancur is currently in observation due to acute CVA. He remains moderate to high risk for further neurologic decompensation and cardiac issues with rapid atrial fibrillation. Mr. Betancur vision is essentially the same. He has no new neuro findings. Denies CP or SOB. No GI symptoms. Exam Alert. Comfortable Hemianopsia on L still present Heart tachy and irregular Lungs clear I/P 1. Acute CVA 2. A fib Further diagnoses and plan as above.
[2016-04-23] MEDS: *HR* HYDROcodone/Acet 5/325 mg TABLET PO PRN ×2 (09:51→15:38)
[2016-04-23] MEDS: *HR* Metoprolol 5 MG/5 ML VIAL IVP PRN ×2 (15:31→23:02)
[2016-04-24] MEDS ORDERED: Multivit/Ca/Min/Fe/FA 1 TAB TABLET PO SCH (09:00)
[2016-04-24] MEDS: *HR* HYDROcodone/Acet 5/325 mg TABLET PO PRN (09:09)
[2016-04-24] MEDS: Aspirin 81 MG TAB.CHEW PO SCH (09:09)
[2016-04-24 11:00] VITALS: BP 107/65
--- NOTE | 2016-04-24 13:11 | Discharge Summary ---
Date of Encounter: 04/24/16 Time of Encounter: 13:09 - Discharge Diagnosis (1) CVA (cerebral vascular accident) Priority: Primary Status: Acute Qualifiers: CVA mechanism: embolism Precerebral and cerebral artery: posterior cerebral artery Laterality of affected vessel: right Qualified Code(s): I63.431 - Cerebral infarction due to embolism of right posterior cerebral artery (2) Paroxysmal atrial fibrillation Priority: Secondary Status: Acute (3) Left homonymous hemianopsia Priority: Secondary Status: Acute - Discharge Medications Prescriptions: Atorvastatin [Lipitor] 40 mg PO HS #30 tablet Dabigatran [Pradaxa] 150 mg PO BID #60 capsule Home Medications: Aspirin 81 mg PO DAILY 04/22/16 [History] Multivitamin [Multi-Day Vitamins] 1 tab PO DAILY 04/22/16 [History] Plant Stanol Elise [Cholest Off] 450 mg PO DAILY 04/22/16 [History] Saw/Vit E/Sod Karine/Lyc/Beta/Pyg [Prostate Health Caplet] 1 tab PO DAILY 04/22/16 [History] Sotalol HCl [Betapace] 120 mg PO Q12H 04/22/16 [History] Atorvastatin [Lipitor] 40 mg PO HS #30 tablet 04/24/16 [Rx] Dabigatran [Pradaxa] 150 mg PO BID #60 capsule 04/24/16 [Rx] Allergies/Adverse Reactions: Allergies No Known Allergies Allergy (Verified 04/22/16 07:17) Date of admission: 04/23/16 12:23 Primary care physician: PCP NO Consults: Neurology - Dr. Mendez Discharging clinician: Lui Diana Anticipated date of discharge: 04/24/16 - Patient Status Disposition: Home, Self-Care Condition: Fair Functional capacity at discharge: independent ambulation Overall status at discharge: patient is progressing back to baseline - Discharge Instructions Follow Up With: NO,PCP [Primary Care Provider] - Additional Instructions: Follow with Dr. Mendez in 2-[address] Sumi TAYLOR. Follow with ophthalmology within the week. - Diet and Activity Activity: increase activity as tolerated Diet: advance to your usual diet Hospital course: Mr. Betancur is a 60 year old male with hx of atrial fibrillation on Sotalol presented to ED with acute visual changes. He was evaluated and found to have acute stroke and subsequently admitted. Mr. Betancur was admitted to [facility]. He was evaluated by Dr. Mendez and found to have acute stroke on R. Due to changes on MRI, anticoagulation held for -5 days. He was noted to be in rapid atrial fibrillation and given IV Lopressor. Ultimately he converted to sinus rhythm. In discussion with the patient it was found that he had not been taking his Xarelto due to cost. On 04/24/2016 he was in NSR and BP was good. Headache seemed better. At that time he was discharged home with further outpatient follow up. He will be started on Pradaxa 150mg BID on Monday and follow up with Dr. Jonas. - Time Spent with Patient Total time spent providing and/or coordinating discharge services: 38min - Constitutional Vitals: Temp Pulse Resp BP Pulse Ox 98.3 F 59 14 107/65 95 04/24/16 11:00 04/24/16 11:00 04/24/16 11:00 04/24/16 11:00 04/24/16 11:00 General appearance: Present: cooperative, A&O X 3, no acute distress, answers questions appropriately - Head Head exam: Present: normocephalic - Eye Additional comments: Hemianopsia present on L. - ENT ENT exam: Present: mucous membranes dry - Respiratory Respiratory exam: Present: CTAB. Absent: rhonchi, wheezes - Cardiovascular Cardiovascular exam: Present: RRR. Absent: tachycardia - GI/Abdominal GI/Abdominal exam: Present: soft. Absent: mass, tenderness - Extremities Exam Extremities exam: Present: warm. Absent: pedal edema - Neurological Exam Neurological exam: Present: alert, oriented X3 - Skin Skin exam: Present: dry, warm. Absent: rash
--- NOTE | 2016-05-04 09:06 | Electrocardiograph Report ---
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
== END 2016-04-24 13:58 | disposition home or self-care (01) | DRG 66 ==
LOC: 3BNU 05:27 → EMEROO 05:27 → SUATTDRO 06:47 → 3BNU 07:34
PROVIDERS: ADMIT Internal Medicine; ATTEND Internal Medicine

== ENCOUNTER 2017-01-02 17:47 | Observation (INO) ==
[2017-01-02] MEDS ORDERED: *HR* Acetaminophen w/Cod 300-30 mg 1 TAB TABLET PO ONE (18:35)
--- NOTE | 2017-01-02 19:06 | Emergency Department Note ---
Disposition Clinical Impression: Atrial fibrillation with RVR, Left hip pain Disposition: Still a Patient Condition: Fair Referrals: Oz Azevedo DO [Primary Care Provider] - Forms: ED Satisfaction Letter Back Pain HPI - General Chief Complaint: ED Back Pain/Injury Stated Complaint: hip pain Time Seen by Provider: 01/02/17 18:10 Source: patient Mode of arrival: private vehicle Limitations: no limitations Nursing Notes Reviewed: Yes Vital Signs Reviewed: Yes - History of Present Illness Pt Subjective Complaint: back pain Onset (ago): month(s) (2) Duration: constant Similar Symptoms Previously: Yes (many years ago had similar pain but it didn't last this long) Location: Other (left buttock) Pain Severity: moderate, severe Quality: sharp, stabbing Radiation: left leg (from buttock to left hamstring) Improves with: none Worsens with: walking Context: unknown Associated symptoms: Reports: difficulty walking (due to pain). Denies: numbness, weakness, incontinence of bowel/bladder, fever, chills, abdominal pain , dysuria, hematuria Treatments prior to arrival: cold therapy, heat therapy, other (Physical therapy ) - Related Data Home Medications Medication Instructions Recorded Confirmed Aspirin 81 mg PO DAILY 04/22/16 05/04/16 Multivitamin [Multi-Day Vitamins] 1 tab PO DAILY 04/22/16 05/04/16 Saw/Vit E/Sod Karine/Lyc/Beta/Pyg 1 tab PO DAILY 04/22/16 05/04/16 [Prostate Health Caplet] Ascorbic Acid [Vitamin C] 1,000 mg PO DAILY 05/04/16 05/04/16 Previous Rx's Medication Instructions Recorded Atorvastatin [Lipitor] 40 mg PO HS #30 tablet 04/24/16 Apixaban [Eliquis] 5 mg PO BID #60 tablet 05/06/16 Atorvastatin [Lipitor] 40 mg PO HS tablet 05/06/16 Diltiazem CD (24hr) [Cardizem CD] 120 mg PO DAILY #30 cap.er.24h 05/06/16 Metoprolol [Lopressor] 25 mg PO BID #60 tablet 05/06/16 Cyclobenzaprine [Flexeril] 10 mg PO HS PRN #10 tablet 12/05/16 HYDROcodone/Acet 5/325 mg [[place] 1 tab PO HS PRN #7 tab 12/05/16 5-325 mg] Trazodone HCl 0 tab PO HS PRN #10 tablet 12/05/16 Allergies Allergy/AdvReac Type Severity Reaction Status Date / Time No Known Allergies Allergy Verified 01/02/17 18:08 All systems ED: reviewed and negative except as stated. Review of Systems: As Per HPI Constitutional: Denies: fever, chills, weakness Cardiovascular: Denies: chest pain, palpitations, dyspnea on exertion, orthopnea , edema, syncope Respiratory: Denies: cough, dyspnea, wheezes Gastrointestinal: Denies: abdominal pain, nausea, vomiting Genitourinary: Denies: urgency, dysuria, frequency, hematuria, discharge, testicular pain Musculoskeletal: Reports: as per HPI, arthralgia, myalgia Integumentary: Denies: rash Neurological: Denies: weakness, numbness, paresthesias Hematological/Lymphatic: Reports: easy bleeding (on Eliquis), easy bruising Past Medical History - Past Medical History Attestation: Yes The following information was validated with the patient. Source: patient Medical history: Reports: CVA, seizures, other Surgical history: Reports: cataract Psychiatric history: Reports: no psych history - Social History Smoking Status: Never smoker Smokeless Tobacco Status: No Alcohol use: Reports: none Drug use: Reports: none Physical Exam - General Limitations: no limitations General appearance: alert, in no apparent distress - Head Head exam: atraumatic, normocephalic, normal inspection - Eye Eye exam: Present: normal appearance, PERRL. Absent: scleral icterus, conjunctival injection, periorbital swelling - ENT ENT exam: mucous membranes moist - Neck Neck exam: Present: normal inspection - Chest Chest inspection: Present: normal inspection - Respiratory Respiratory exam: Present: normal lung sounds bilaterally. Absent: respiratory distress, wheezes - Cardiovascular Cardiovascular exam: Present: tachycardia, irregular rhythm. Absent: systolic murmur, diastolic murmur - Abdominal Exam Abdominal exam: Present: soft, Non-Tender. Absent: mass, pulsatile mass - Extremities Exam Extremities exam: Present: normal inspection, full ROM, normal capillary refill. Absent: tenderness, pedal edema, calf tenderness - Expanded Lower Extremity Exam Hip/Pelvis exam: Present: normal inspection, full ROM (increased pain with left hip flexion), tenderness (left SI joint and Gluteus), pelvis stable. Absent: swelling, deformity, crepitus, dislocation, external rotation, internal rotation , shortening Upper leg exam: Present: normal inspection. Absent: tenderness Knee exam: Present: normal inspection, full ROM, knee extension intact. Absent : tenderness Lower leg exam: Present: normal inspection, Achilles tendon intact. Absent: tenderness, Homans' sign Ankle exam: Present: normal inspection, full ROM. Absent: tenderness, swelling Foot/toe exam: Present: normal inspection, full ROM. Absent: tenderness, swelling Neurovascular/Tendon exam: Present: normal capillary refill, normal fine/light touch. Absent: pulse deficit, motor deficit, sensory deficit, tendon deficit, extremity cold to touch, pallor, foot drop, significant pain with passive ROM of distal joint - Back Exam Back exam: Present: normal inspection, tenderness (mild sacrum - left), paraspinal tenderness, sciatic notch tenderness (L). Absent: CVA tenderness (R) , CVA tenderness (L), muscle spasm - Neurological Exam Neurological exam: Present: alert, oriented X3, CN II-XII intact, normal gait, reflexes normal. Absent: motor sensory deficit - Psychiatric Psychiatric exam: Present: normal affect, normal mood - Skin Skin exam: Present: warm, dry, intact, normal color Course Course Narrative: Patient presents from home with his for evaluation of left hip pain. He actually points to the left mid buttock and left SI joint as the site of pain. It has been present for about eight weeks. He saw his primary care provider and was sent to physical therapy. He had his third physical therapy appointment this morning. And the pain has gotten worse instead of better. The pain does not get better with movement and he has normal DP, PT pulses, therefore, I do not suspect intermittent claudication as the cause of pain. He has history of two ischemic strokes and is currently on Eliquis. He has atrial fibrillation, and was recently switched from sotalol to metoprolol. His heart rate is currently 120, EKG has been ordered along with x-rays of his hip and back and pain medication. EKG shows A. fib with RVR, rate is 170. Patient will be moved out of the fast- track area to a medical bed for further evaluation and treatment. Vital Signs Temperature 97.7 F 01/02/17 18:05 Pulse Rate 120 01/02/17 18:05 Respiratory Rate 16 01/02/17 18:05 Blood Pressure 109/69 01/02/17 18:05 O2 Sat by Pulse Oximetry 98 01/02/17 18:05 Temperature 97.7 F 01/02/17 18:05 Pulse Rate 120 01/02/17 18:05 Respiratory Rate 16 01/02/17 18:05 Blood Pressure 109/69 01/02/17 18:05 O2 Sat by Pulse Oximetry 98 01/02/17 18:05 Oxygen Delivery Oxygen Delivery Room Air
[2017-01-02 20:03] LABS: Basophils # 0.1 K/mcL (0.0-0.2); Basophils % 0.9 %; Eosinophils # 0.2 K/mcL (0.0-0.6); Eosinophils % 1.8 %; Hematocrit 41.2 % (37.5-50.1); Hemoglobin 13.8 g/dL (12.9-16.9); Immature Granulocytes % 0.2 % (0-4); Lymphocytes # 2.8 K/mcL (0.6-4.6); Lymphocytes % 29.9 %; Mean Corpuscular HGB Conc 33.5 g/dL (31.6-35.5); Mean Corpuscular Hemoglobin 29.5 pg (28.0-33.3); Mean Platelet Volume 9.6 fL (9.4-12.4); Monocytes # 0.9 K/mcL (0.0-1.3); Monocytes % 9.5 %; Neutrophils # 5.3 K/mcL (1.6-8.9); Platelet Count 289 K/mcL (140-400); Red Blood Count 4.68 M/mcL (4.19-5.50); Red Cell Distribution Width 12.9 % (11.5-14.5); Segmented Neutrophils % 57.7 %
[2017-01-02 20:08] LABS: INR 1.1; Prothrombin Time 12.4 Seconds (9.4-12.1)
[2017-01-02 20:11] LABS: Activated Partial Thrombo Time 33.3 Seconds (26.0-36.0)
[2017-01-02] MEDS ORDERED: *HR* Morphine 2 MG/ML SYRINGE IVP ONE (20:11)
[2017-01-02 20:16] LABS: BUN/Creatinine Ratio 15 (6-26); Blood Urea Nitrogen 16 mg/dL (8-26); Calcium 10.1 mg/dL (8.6-10.8); Carbon Dioxide 22 mEq/L (19-29); Chloride 105 mEq/L (98-109); Glucose 99 mg/dL (70-99); Osmolality,Calculated 289 (280-300); Potassium 3.8 mEq/L (3.5-4.5); Sodium 139 mEq/L (136-145); eGFR For African Americans > 60 (> 60); eGFR For Non-African Americans > 60 (> 60)
--- NOTE | 2017-01-02 20:34 | Emergency Department Note ---
Disposition Clinical Impression: Atrial fibrillation with RVR, Left hip pain Disposition: Admitted As Inpatient Condition: Good Referrals: Oz Azevedo DO [Primary Care Provider] - Forms: ED Satisfaction Letter Time of Disposition: 20:58 Back Pain HPI - General Chief Complaint: ED Back Pain/Injury Stated Complaint: hip pain Time Seen by Provider: 01/02/17 18:10 Source: patient Limitations: no limitations Nursing Notes Reviewed: Yes Vital Signs Reviewed: Yes - History of Present Illness HPI Narrative: accepted sign out from the PA. This was orginally a melvina who has been expereincing incresed left hip pain and low back pain and has a history of atrial fibrillation and has a HR of 170. Melvina states that his HR is teneous and wasmost recently had his rate controlled medications changed from sotaolol to metorpolo and his HR usually ranges aroun 80s with atrial fibrillation. Melvina denies chest pain or shortness of breath and states that he did have increased caffiene in his diet today in addition to anxiety and pain from his hip. denies nausea, vomitting, chest pain, or shortness of breaeth. Similar Symptoms Previously: Yes (many years ago had similar pain but it didn't last this long) Pain Severity: moderate, severe Quality: sharp, stabbing Radiation: left leg (from buttock to left hamstring) Improves with: none Worsens with: walking Associated symptoms: Reports: difficulty walking (due to pain). Denies: numbness, weakness, incontinence of bowel/bladder, fever, chills, abdominal pain , dysuria, hematuria Treatments prior to arrival: cold therapy, heat therapy, other (Physical therapy ) - Related Data Home Medications Medication Instructions Recorded Confirmed Aspirin 81 mg PO DAILY 04/22/16 05/04/16 Multivitamin [Multi-Day Vitamins] 1 tab PO DAILY 04/22/16 05/04/16 Saw/Vit E/Sod Karine/Lyc/Beta/Pyg 1 tab PO DAILY 04/22/16 05/04/16 [Prostate Health Caplet] Ascorbic Acid [Vitamin C] 1,000 mg PO DAILY 05/04/16 05/04/16 Previous Rx's Medication Instructions Recorded Atorvastatin [Lipitor] 40 mg PO HS #30 tablet 04/24/16 Apixaban [Eliquis] 5 mg PO BID #60 tablet 05/06/16 Atorvastatin [Lipitor] 40 mg PO HS tablet 05/06/16 Diltiazem CD (24hr) [Cardizem CD] 120 mg PO DAILY #30 cap.er.24h 05/06/16 Metoprolol [Lopressor] 25 mg PO BID #60 tablet 05/06/16 Cyclobenzaprine [Flexeril] 10 mg PO HS PRN #10 tablet 12/05/16 HYDROcodone/Acet 5/325 mg [Morrice 1 tab PO HS PRN #7 tab 12/05/16 5-325 mg] Trazodone HCl 0 tab PO HS PRN #10 tablet 12/05/16 Allergies Allergy/AdvReac Type Severity Reaction Status Date / Time No Known Allergies Allergy Verified 01/02/17 18:08 Constitutional: Denies: fever, chills, weakness Cardiovascular: Denies: chest pain, palpitations, dyspnea on exertion, orthopnea , edema, syncope Respiratory: Denies: cough, dyspnea, wheezes Gastrointestinal: Denies: abdominal pain, nausea, vomiting Genitourinary: Denies: urgency, dysuria, frequency, hematuria, discharge, testicular pain Musculoskeletal: Reports: as per HPI, arthralgia, myalgia Integumentary: Denies: rash Neurological: Denies: weakness, numbness, paresthesias Hematological/Lymphatic: Reports: easy bleeding (on Eliquis), easy bruising Past Medical History - Past Medical History Medical history: Reports: CVA, seizures, other Surgical history: Reports: cataract Psychiatric history: Reports: no psych history - Social History Smoking Status: Never smoker Smokeless Tobacco Status: No Alcohol use: Reports: none Drug use: Reports: none Physical Exam - General Limitations: no limitations General appearance: alert, in no apparent distress - Head Head exam: atraumatic, normocephalic, normal inspection - Eye Eye exam: Present: normal appearance, PERRL, EOMI - Expanded Eye Exam Pupils: Left: reactive - ENT ENT exam: normal exam, normal oropharynx, mucous membranes moist - Expanded ENT Exam External ear exam: Present: normal external inspection Mouth exam: Present: normal external inspection Teeth exam: Present: normal inspection Throat exam: Present: normal inspection - Neck Neck exam: Present: normal inspection, full ROM, trachea midline - Chest Chest inspection: Present: normal inspection, symmetric chest wall rise - Respiratory Respiratory exam: Present: normal lung sounds bilaterally - Cardiovascular Cardiovascular exam: Present: tachycardia, irregular rhythm, normal heart sounds - Abdominal Exam Abdominal exam: Present: soft, Non-Tender. Absent: tenderness, distention, guarding, rebound, rigidity - Extremities Exam Extremities exam: Present: normal inspection, full ROM. Absent: tenderness, pedal edema - Expanded Upper Extremity Exam Shoulder exam: Present: normal inspection, full ROM Arm exam: Present: normal inspection, full ROM Elbow exam: Present: normal inspection, full ROM Forearm/Wrist exam: Present: normal inspection, full ROM Hand exam: Present: normal inspection, full ROM Vascular exam: Normal: capillary refill, radial pulse - Expanded Lower Extremity Exam Hip/Pelvis exam: Present: normal inspection, full ROM Upper leg exam: Present: normal inspection, full ROM Knee exam: Present: normal inspection, full ROM Lower leg exam: Present: normal inspection, full ROM Ankle exam: Present: normal inspection, full ROM Foot/toe exam: Present: normal inspection, full ROM Neurovascular/Tendon exam: Absent: motor deficit, sensory deficit, tendon deficit - Back Exam Back exam: Present: normal inspection, full ROM. Absent: tenderness - Neurological Exam Neurological exam: Present: alert, oriented X3 - Expanded Neurological Exam Patient oriented to: Present: person, place, time Coma Scale Eye Opening: Spontaneous Coma Scale Motor Response: Obeys Commands Coma Scale Verbal Response: Oriented Coma Scale Total: 15 - Psychiatric Psychiatric exam: Present: normal affect, normal mood - Skin Skin exam: Present: warm, dry, intact, normal color Course Course Narrative: we tala do cardiac workup in addition to cardizem/cardizem drip and monitor. Will likely admit to medicine - Reevaluation(s) Reevaluation #1: melvina HR has improved to 101 with cardizem push, we are waitin remy the drip. Melvina has agreed to stay for admission. stabe, no acute distress Time: 20:58 - Consultations Consultation #1: discussed case with Dr. Suarez and he has accepted patient for admission. Time: 20:58 Vital Signs Temperature 97.7 F 01/02/17 18:05 Pulse Rate 120 01/02/17 18:05 Respiratory Rate 16 01/02/17 18:05 Blood Pressure 109/69 01/02/17 18:05 O2 Sat by Pulse Oximetry 98 01/02/17 18:05 Temperature 97.7 F 01/02/17 18:05 Pulse Rate 120 01/02/17 18:05 Respiratory Rate 16 01/02/17 18:05 Blood Pressure 109/69 01/02/17 18:05 O2 Sat by Pulse Oximetry 98 01/02/17 18:05 Oxygen Delivery Oxygen Delivery Room Air Back Pain/Injury - Lab Data Result diagrams: 01/02/17 19:55 01/02/17 19:55 Lab Results 01/02/17 01/02/17 01/02/17 Range/Units 19:55 19:55 19:55 WBC 9.3 (4.3-11.1) K/mcL RBC 4.68 (4.19-5.50) M/mcL Hgb 13.8 (12.9-16.9) g/dL Hct 41.2 (37.5-50.1) % MCV 88.0 (83.0-100.0) fL MCH 29.5 (28.0-33.3) pg MCHC 33.5 (31.6-35.5) g/dL RDW 12.9 (11.5-14.5) % Plt Count 289 (140-400) K/mcL MPV 9.6 (9.4-12.4) fL Immature Gran % 0.2 (0-4) % Seg Neutrophils % 57.7 % Lymphocytes % 29.9 % Monocytes % 9.5 % Eosinophils % 1.8 % Basophils % 0.9 % Neutrophils # 5.3 (1.6-8.9) K/mcL Lymphocytes # 2.8 (0.6-4.6) K/mcL Monocytes # 0.9 (0.0-1.3) K/mcL Eosinophils # 0.2 (0.0-0.6) K/mcL Basophils # 0.1 (0.0-0.2) K/mcL PT 12.4 H (9.4-12.1) Seconds INR 1.1 APTT 33.3 (26.0-36.0) Seconds Sodium 139 (136-145) mEq/L Potassium 3.8 (3.5-4.5) mEq/L Chloride 105 (98-109) mEq/L Carbon Dioxide 22 (19-29) mEq/L BUN 16 (8-26) mg/dL Creatinine 1.10 (0.72-1.25) mg/dL Est GFR ( Amer) > 60 (> 60) Est GFR (Non-Af Amer) > 60 (> 60) BUN/Creatinine Ratio 15 (6-26) Glucose 99 (70-99) mg/dL Calculated Osmolality 289 (280-300) Calcium 10.1 (8.6-10.8) mg/dL Troponin I (0-0.03) ng/mL 01/02/17 Range/Units 19:55 WBC (4.3-11.1) K/mcL RBC (4.19-5.50) M/mcL Hgb (12.9-16.9) g/dL Hct (37.5-50.1) % MCV (83.0-100.0) fL MCH (28.0-33.3) pg MCHC (31.6-35.5) g/dL RDW (11.5-14.5) % Plt Count (140-400) K/mcL MPV (9.4-12.4) fL Immature Gran % (0-4) % Seg Neutrophils % % Lymphocytes % % Monocytes % % Eosinophils % % Basophils % % Neutrophils # (1.6-8.9) K/mcL Lymphocytes # (0.6-4.6) K/mcL Monocytes # (0.0-1.3) K/mcL Eosinophils # (0.0-0.6) K/mcL Basophils # (0.0-0.2) K/mcL PT (9.4-12.1) Seconds INR APTT (26.0-36.0) Seconds Sodium (136-145) mEq/L Potassium (3.5-4.5) mEq/L Chloride (98-109) mEq/L Carbon Dioxide (19-29) mEq/L BUN (8-26) mg/dL Creatinine (0.72-1.25) mg/dL Est GFR ( Amer) (> 60) Est GFR (Non-Af Amer) (> 60) BUN/Creatinine Ratio (6-26) Glucose (70-99) mg/dL Calculated Osmolality (280-300) Calcium (8.6-10.8) mg/dL Troponin I 0.00 (0-0.03) ng/mL - EKG Data EKG attestation: Yes I reviewed and interpreted this EKG. EKG results narrative: atrial fibrillation with rate of 170. NO STEMI. changed from 12/21/16. 1914
[2017-01-02] MEDS ORDERED: 0.9 % Sodium Chloride 1,000 ML ONE (21:05)
--- NOTE | 2017-01-02 21:09 | Internal Med History&Physical ---
Date of Encounter: 01/02/17 Time of Encounter: 21:05 Assessment and Plan (1) Atrial fibrillation with RVR Current visit: No Status: Resolved EKG reveals Atrial fibrillation with rate of 170. No STEMI. Changed from 12/21/16 Cardizem ggt discontinued due to hypotension. Digoxin 0.25mg IV ordered. Continue IVF. Repeat EKG in AM. CXR negative. Echo ordered. Initial troponin 0.00, trend Troponin. TSH pending. [id number] score 3. Patient reports taking Eliquis and was switched from Sotolol to Metoprolol after hospitalization for similar episode on 05/06/16. Patient sees Dr. Jonas in clinic and reports stopping Cardizem PO and Sotalol. Continue to monitor. (2) Left hip pain Current visit: Yes Status: Acute X-ray reveals no acute osseous abnormality of the left hip or sacrum/coccyx. No acute osseous abnormality in L-spine. Multifocal mild degenerative change. Given the degree of osteopenia, nondisplaced fractures may be radiographically occult. If pain or concern for fracture persists, consider MR imaging. Patient reports much improvement with Morphine in ED. Will give Flexeril and Percocet prn pain. Continue to monitor (3) History of CVA (cerebrovascular accident) Current visit: No Status: Chronic Continue anticoagulation. (4) Seizure disorder Current visit: Yes Status: Acute Continue home meds. (5) DVT prophylaxis Current visit: No Status: Acute Continue Eliquis. Internal Medicine - H&P: HPI Admitted From: Home Plans for Post Hospital Care: Home History of present illness: Mr. Betancur is a 61 year old male with PMH of paroxysmal A-fib, ischemic stroke x2, seizures, and chronic back pain that presents complaining of constant , sharp stabbing left sided back pain radiating to his left hamstring since participating in physical therapy today. Pain is moderate in severity and worse with walking and ROM. Patient reports similar pain for the past 8 months and has tried muscle relaxants, OTC pain medications, and heat/ cold packs without relief. He reports drinking lots of coffee today secondary to anxiety from his hip pain. In the ED, patient started c/o palpitations after laying on his left side during x-rays of his hip and back. EKG revealed A. fib with RVR, rate 170 in the ED. Patient reports taking Eliquis and was switched from Sotolol to Metoprolol after hospitalization for similar episode on 05/06/16. Patient sees Dr. Jonas in clinic and reports stopping Cardizem PO and Sotalol. Patient denies fever, chills, CP, SOB, abd pain, N/V/D, thyroid disease, edema, incontinence of bowel/bladder, or recent illness. is at bedside. Past Med Surg Social Fam HX - Past Medical History Medical history: atrial fibrillation, CVA, seizures, other Psychiatric history: no psych history - Past Surgical History Surgical History: cataract - Social History Smoking Status: Never smoker Smokeless Tobacco Status: No Alcohol use: none Drug use: none - Family History Father Living Status: Hx Family Cancer: Yes (Cancer) Brother Hx Family Cardiac Disorders: Yes (Heart disease) Internal Medicine - H&P: Meds Apixaban [Eliquis] 5 mg PO BID #60 tablet 05/06/16 [Rx] Atorvastatin [Lipitor] 40 mg PO HS tablet 05/06/16 [Rx] Metoprolol [Lopressor] 25 mg PO BID #60 tablet 05/06/16 [Rx] Acetaminophen [Tylenol] 500 mg PO Q6H PRN 01/02/17 [History] Gabapentin [Neurontin] 300 mg PO TID 01/02/17 [History] LevETIRAcetam [Keppra] 500 mg PO BID 01/02/17 [History] 3 Allergy/AdvReac Type Severity Reaction Status Date / Time No Known Allergies Allergy Verified 01/02/17 18:08 All Systems PM: A 10-system review of systems was performed and is negative for pertinent findings except as documented above in the HPI. - Constitutional Constitutional: no chills, no fatigue, no fever(s), no weight gain, no weight loss - EENT Eyes: no change in vision, no loss of vision Nose, mouth and throat: no dysphagia, no nasal congestion, no sinus pressure - Cardiovascular Cardiovascular ROS IM: irregular heart rhythm, palpitations, no chest pain, no lightheadedness - Respiratory Respiratory: no cough, no dyspnea, no chest congestion - Gastrointestinal Gastrointestinal: constipation (2 days since last BM), no abdominal pain, no diarrhea, no nausea, no vomiting - Genitourinary Genitourinary ROS male: no dysuria, no urinary frequency, no urinary urgency - Musculoskeletal Musculoskeletal ROS IM: back pain, myalgias, no neck pain, no numbness, no stiffness, no tingling - Integumentary Integumentary IM: no erythema, no rash - Neurological Neurological ROS: no convulsions, no dizziness, no numbness, no tingling, no weakness - Psychiatric Psychiatric: anxiety, no depression - Endocrine Endocrine IM: no polydipsia, no polyphagia, no polyuria - Hematologic/Lymphatic Hematologic/Lymphatic: easy bruising (due to blood thinners) - Constitutional Vitals: Temp Pulse Resp BP Pulse Ox 97.7 F 90 13 92/66 97 01/02/17 18:05 01/02/17 21:03 01/02/17 21:03 01/02/17 21:03 01/02/17 21:03 General appearance: Present: A&O X 3, pleasant, no acute distress, answers questions appropriately - Head Head exam: Present: atraumatic, normal inspection, normocephalic - Eye Eye exam: Present: EOMI, PERRL - ENT ENT exam: Present: mucous membranes moist, normal oropharynx - Neck Neck exam general surgery: Present: full ROM, supple. Absent: lymphadenopathy, tenderness, thyromegaly - Respiratory Respiratory exam: Present: CTAB. Absent: rhonchi, wheezes - Cardiovascular Cardiovascular exam: Present: irregular rhythm, +S1, +S2, tachycardia. Absent: systolic murmur - GI/Abdominal GI/Abdominal exam: Present: normal bowel sounds, soft. Absent: distended, firm , guarding, rebound, tenderness - Extremities Exam Extremities exam: Present: full ROM, normal inspection, warm, radial pulses palpable and symmetrical. Absent: tenderness Additional comments: positive straight leg raise on the left - Back Exam Back exam: Present: normal inspection. Absent: CVA tenderness (L), CVA tenderness (R), muscle spasm, paraspinal tenderness, tenderness, vertebral tenderness - Neurological Exam Neurological exam: Present: alert, oriented X3, strengths equal and symetr throughout. Absent: altered - Psychiatric Psychiatric exam: Present: normal affect, normal mood - Skin Skin exam: Present: dry, normal color, warm. Absent: rash Internal Med - H&P Results - Labs CBC & Chem 7: 01/02/17 19:55 01/02/17 19:55 - EKG Data When compared to previous EKG: there are significant changes (atrial fibrillation with rate of 170. No STEMI. changed from 12/21/16) - Impressions Impressions Hip X-Ray 01/02/17 18:35 IMPRESSION: No acute osseous abnormality of the left hip or sacrum/coccyx. Given the degree of osteopenia, nondisplaced fractures may be radiographically occult. If pain or concern for fracture persists, consider MR imaging. D/ / 01/02/2017 19:21:35 Chirag Krueger MD / tiffanie Interpreting Provider: Chirag Krueger MD Lumbar Spine X-Ray 01/02/17 18:35 IMPRESSION: No acute osseous abnormality Multifocal mild degenerative change D/ / Aj Zimmerman / Aj Zimmerman Interpreting Provider: Aj Zimmerman Sacrum and Coccyx X-Ray 01/02/17 18:35 IMPRESSION: No acute osseous abnormality of the left hip or sacrum/coccyx. Given the degree of osteopenia, nondisplaced fractures may be radiographically occult. If pain or concern for fracture persists, consider MR imaging. D/ / 01/02/2017 19:21:35 Chirag Krueger MD / tiffanie Interpreting Provider: Chirag Krueger MD Chest X-Ray 01/02/17 19:41 IMPRESSION: Stable portable study D/ / Chelly Camara Cha, MD / Chelly Camara Cha, MD Interpreting Provider: Chelly Camara Cha, MD
[2017-01-02] MEDS ORDERED: *HR* Digoxin 0.5 MG/2 ML AMPUL IVP ONE (22:38)
[2017-01-02] MEDS: 0.9 % Sodium Chloride 1,000 ML IVC SCH (22:54)
--- NOTE | 2017-01-02 23:01 | Event Note ---
Date of Encounter: 01/02/17 Time of Encounter: 22:59 Patient and examined with medical social worker. Presents mainly with pain in the left thigh. In the ER was found to be in AFib with RVR. Mentioned that sotalol was recently switched to metoprolol. Relatively hypotensive. Will give the patient IV digoxin for rate control. Hydration. Physical therapy occupational therapy for left thigh pain. Pain control
[2017-01-02] MEDS: *HR* OxyCODONE/APAP 5/325 TABLET PO PRN (23:31)
[2017-01-03] MEDS ORDERED: Ketorolac 30 MG/ML VIAL IM ONE (02:48)
[2017-01-03] MEDS ORDERED: *HR* Heparin 5,000 UNIT/ML VIAL SQ SCH (06:00)
[2017-01-03] MEDS: *HR* OxyCODONE/APAP 5/325 TABLET PO PRN ×2 (06:37→19:01)
[2017-01-03] MEDS: 0.9 % Sodium Chloride 1,000 ML IVC SCH (06:38)
[2017-01-03 07:10] LABS: Alanine Aminotransferase 47 Units/L (0-55); Albumin/Globulin Ratio 0.9 (1.1-2.2); Alkaline Phosphatase 119 Units/L (38-126); Aspartate Amino Transferase 28 Units/L (5-34); BUN/Creatinine Ratio 16 (6-26); Bilirubin,Total 0.5 mg/dL (0.2-1.2); Blood Urea Nitrogen 16 mg/dL (8-26); Carbon Dioxide 27 mEq/L (19-29); Chloride 108 mEq/L (98-109); Globulin 3.5 g/dL (2.4-3.5); Glucose 97 mg/dL (70-99); Magnesium 1.8 mg/dL (1.6-2.6); Osmolality,Calculated 295 (280-300); Potassium 4.5 mEq/L (3.5-4.5); Sodium 142 mEq/L (136-145); Total Protein 6.5 g/dL (6.0-8.3); eGFR For African Americans > 60 (> 60); eGFR For Non-African Americans > 60 (> 60)
[2017-01-03 07:25] LABS: Thyroid Stimulating Hormone 2.749 mcIU/mL (0.350-4.840)
[2017-01-03] MEDS: levETIRAcetam 250 MG TABLET PO SCH ×2 (10:49→20:50)
[2017-01-03] MEDS: APIXABAN 5 MG TABLET PO SCH ×2 (10:49→20:50)
[2017-01-03] MEDS: Gabapentin 300 MG CAPSULE PO SCH ×3 (10:50→20:50)
--- NOTE | 2017-01-03 11:21 | Cardiology Consult Note ---
Date of Encounter: 01/03/17 Time of Encounter: 11:21 Assessment and Plan (1) Paroxysmal atrial fibrillation Current Visit: Yes Status: Acute Known hx of PAF, previously failed Sotalol. Anticoagulated on Eliquis. Was being managed on Cardizem CD 120mg daily and Lopressor 25mg BID as rate control strategy as outpt. Found to be in A-Fib RVR when seen by Dr. Jonas in November. Pt presented to ED for sciatic leg pain, found to be in A-Fib RVR rate 170s. Low BP, so pt was given one dose of IV digoxin. Pt converted back to SR ~0135. He denies chest pain, dypsnea or palpitations. Reports having drank a large coffee prior to A-Fib episode. K 4.5, Mag 1.8, TSH 2.749. Troponins negative x 2. Echo 04/22/16 EF 60%, normal LV, RV size and function. Holter 12/22/16: SR, rare PACs and PVCs. Given recurrence of PAF on both outpt and inpt setting, recommend attempt rhythm control with a different antiarrhythmic agent, Rythmol 150mg Q8hrs. Baseline EKG QRS 90, QT/QTc 472/462ms from 12/21/16 when in SR. No recent ischemic evaluation. Will proceed with stress test today and if negative, start Rythmol this afternoon. Pt will need monitored for 5 doses and will obtain daily EKGs to monitor QRS. Pt verbalizes understanding, willing to stay for antiarrhythmic therapy. Pt reports missing one dose of Eliquis last night. If DCCV is warranted, will require SABINA. Discussion w patient/family: The assessment and plan as outlined above was discussed with the patient and/or family members who expressed understanding and agreement. All questions were answered. Thank you for involving us in the care of your patient. Please call with any questions. I will discuss all the above with Dr. Yan Gonzalez and make changes as necessary. History of Present Illness Consult date: 01/03/17 Requesting physician: Robert Suarez Consult reason: PAF Chief complaint: left leg pain History of present illness: Mr. Betancur is a 61 year old male with PMH of PAF and prior CVA. He was recently seen by Dr. Jonas 12/27/16 for PAF. He has failed Sotalol, was stopped 11/2016. As outpt was attempting rate control strategy on Cardizem CD 120mg daily and Lopressor 25mg BID. He is anticoagulated on Eliquis. He presented to ED yesterday evening due to left leg/hip pain due to sciatica. He was found to be in A-Fib RVR HR 170s and admitted. He was given a dose of IV digoxin. Pt has since converted back to SR. He denied any chest pain, palpitations or dyspnea while in A-Fib. He reports drinking a large coffee prior to presentation, which usually triggers his A-Fib. No cardiac complaints today. Only complaint is left leg pain. Cardiology consulted for PAF recommendations. Prior CV testing: TTE 04/22/16: LVEF 60-65%. Normal LV, RV size and function. Mild MR. No phtn. Holter 12/22/16: Rare PACs and PVCs. Past Med Surg Social Fam HX - Past Medical History Medical history: atrial fibrillation, CVA, seizures, other Psychiatric history: no psych history - Past Surgical History Surgical History: cataract - Social History Smoking Status: Never smoker Smokeless Tobacco Status: No Alcohol use: none Drug use: none - Family History Father Living Status: Hx Family Cancer: Yes (Cancer) Brother Hx Family Cardiac Disorders: Yes (Heart disease) Medications and Allergies Apixaban [Eliquis] 5 mg PO BID #60 tablet 05/06/16 [Rx] Atorvastatin [Lipitor] 40 mg PO HS tablet 05/06/16 [Rx] Metoprolol [Lopressor] 25 mg PO BID #60 tablet 05/06/16 [Rx] Acetaminophen [Tylenol] 500 mg PO Q6H PRN 01/02/17 [History] Gabapentin [Neurontin] 300 mg PO TID 01/02/17 [History] LevETIRAcetam [Keppra] 500 mg PO BID 01/02/17 [History] 3 Allergy/AdvReac Type Severity Reaction Status Date / Time No Known Allergies Allergy Verified 01/02/17 18:08 All Systems Review: A 10-system review of systems was performed and is negative for pertinent findings except as documented above in the HPI. Physical Examination Vital Signs, Last 4 Hours Temp Pulse Resp BP Pulse Ox 01/03/17 10:56 72 127/88 01/03/17 08:00 97.6 F 62 18 106/76 95 Vital Signs Temp Pulse Resp BP Pulse Ox 01/03/17 10:56 72 127/88 01/03/17 08:00 97.6 F 62 18 106/76 95 01/03/17 04:53 97.6 F 63 18 97/71 96 01/02/17 22:21 96 01/02/17 21:46 97.5 F L 136 18 98/78 96 01/02/17 21:17 16 92/66 01/02/17 21:03 90 13 92/66 97 01/02/17 18:05 97.7 F 120 16 109/69 98 Intake and Output 01/02/17 01/03/17 01/03/17 23:59 07:59 15:59 Intake Total 0 / 0 1000 / 1000 Output Total 0 / 0 Balance 0 / 0 1000 / 1000 Intake: IV Fluids 1000 / 1000 0.9 % Sodium Chloride 1, 1000 / 1000 000 ML @ 125 mls/hr IVC . Q8H [facility] Rx#:[id number] Oral 0 / 0 0 / 0 Output: Urine 0 / 0 Other: # Voids 2 Weight 80.8 kg 80.8 kg Patient Weight 01/03/17 23:59 Weight 80.8 kg General: Conversant, No Apparent Distress HEENT: Atraumatic, Normocephaly, Mucus Membranes Moist Neck: No JVD, Normal carotid pulses Cardiac: Reg Rate and Rhythm, Normal S1 and S2, No Murmur Lungs: Normal Breath Sounds, No Wheeze, Rales, Rhonchi Neuro: Alert and responsive, No focal deficits noted Abdomen: Soft, Non-Tender Skin: No rashes noted on visualized skin Musculoskeletal: No Chest Wall Tenderness Extremities: No Clubbing, No Cyanosis, No Edema, Normal Pulses Results 01/02/17 19:55 01/03/17 06:23 Lab Results 01/03/17 01/03/17 06:23 06:23 Sodium 142 Potassium 4.5 Chloride 108 Carbon Dioxide 27 BUN 16 Creatinine 1.01 Glucose 97 Calcium 9.0 Magnesium 1.8 Total Bilirubin 0.5 AST 28 ALT 47 Alkaline Phosphatase 119 Troponin I 0.00 TSH 2.749 Short CBC 01/02/17 Range/Units 19:55 WBC 9.3 (4.3-11.1) K/mcL Hgb 13.8 (12.9-16.9) g/dL Hct 41.2 (37.5-50.1) % Plt Count 289 (140-400) K/mcL Neutrophils # 5.3 (1.6-8.9) K/mcL BMP 01/03/17 01/02/17 Range/Units 06:23 19:55 Sodium 142 139 (136-145) mEq/L Potassium 4.5 3.8 (3.5-4.5) mEq/L Chloride 108 105 (98-109) mEq/L Carbon Dioxide 27 22 (19-29) mEq/L BUN 16 16 (8-26) mg/dL Creatinine 1.01 1.10 (0.72-1.25) mg/dL Glucose 97 99 (70-99) mg/dL Calcium 9.0 10.1 (8.6-10.8) mg/dL Cardiac Enzymes 01/03/17 01/02/17 Range/Units 06:23 19:55 Troponin I 0.00 0.00 (0-0.03) ng/mL Liver Function 01/03/17 Range/Units 06:23 Total Bilirubin 0.5 (0.2-1.2) mg/dL AST 28 (5-34) Units/L ALT 47 (0-55) Units/L Alkaline Phosphatase 119 (38-126) Units/L Albumin 3.0 L (3.5-5.0) g/dL Impressions Hip X-Ray 01/02/17 18:35 IMPRESSION: No acute osseous abnormality of the left hip or sacrum/coccyx. Given the degree of osteopenia, nondisplaced fractures may be radiographically occult. If pain or concern for fracture persists, consider MR imaging. D/ / 01/02/2017 19:21:35 Chirag Krueger MD / [facility] Interpreting Provider: Chirag Krueger MD Lumbar Spine X-Ray 01/02/17 18:35 IMPRESSION: No acute osseous abnormality Multifocal mild degenerative change D/ / Aj Zimmerman / Aj Zimmerman Interpreting Provider: Aj Zimmerman Sacrum and Coccyx X-Ray 01/02/17 18:35 IMPRESSION: No acute osseous abnormality of the left hip or sacrum/coccyx. Given the degree of osteopenia, nondisplaced fractures may be radiographically occult. If pain or concern for fracture persists, consider MR imaging. D/ / 01/02/2017 19:21:35 Chirag Krueger MD / [facility] Interpreting Provider: Chirag Krueger MD Chest X-Ray 01/02/17 19:41 IMPRESSION: Stable portable study D/ / Chelly Camara Cha, MD / Chelly Camara Cha, MD Interpreting Provider: Chelly Camara Cha, MD Active Medications Apixaban (Eliquis) 5 mg PO BID [facility] Stop: 07/05/17 09:01 Last Admin: 01/03/17 10:49 Dose: 5 mg Atorvastatin Calcium (Lipitor) 40 mg PO HS [facility] Stop: 07/05/17 21:01 Cyclobenzaprine HCl (Flexeril) 10 mg PO HS [facility] Stop: 07/04/17 22:16 Last Admin: 01/02/17 22:34 Dose: 10 mg Gabapentin (Neurontin) 300 mg PO TID [facility] Stop: 07/05/17 09:01 Last Admin: 01/03/17 10:50 Dose: 300 mg Sodium Chloride (0.9 % Sodium Chloride) 1,000 mls @ 125 mls/hr IVC .Q8H [facility] Stop: 01/03/17 22:44 Last Admin: 01/03/17 06:38 Dose: 125 mls/hr Levetiracetam (Keppra) 500 mg PO BID [facility] Stop: 07/05/17 09:01 Last Admin: 01/03/17 10:49 Dose: 500 mg Metoprolol Tartrate (Lopressor) 25 mg PO BID [facility] Stop: 07/05/17 09:01 Last Admin: 01/03/17 10:49 Dose: 25 mg Oxycodone/Acetaminophen (Percocet 5/325) 1 each PO Q6HR PRN PRN Reason: Pain Stop: 07/04/17 22:10 Last Admin: 01/03/17 06:37 Dose: 1 each - Imaging and Cardiology Echo: report reviewed - EKG Interpretation EKG results cardiology: personally reviewed (A-Fib RVR rate 170), other (12 hr tele AVG HR 79, PAF. Was A-Fib until converted to SR ~0135.) Consult Discharge Plan - Plan Referrals: Oz Azevedo DO [Primary Care Provider] -
[2017-01-03] MEDS ORDERED: Regadenoson 0.4 MG/5 ML SYRINGE IVP ONE (11:25)
[2017-01-03] MEDS ORDERED: Ketorolac 30 MG/ML VIAL IVP ONE (12:00)
--- NOTE | 2017-01-03 14:25 | Electrocardiograph Report ---
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
[2017-01-03] MEDS: *HR* HYDROmorphone (PF) 1 MG/ML SYRINGE IVP PRN ×2 (15:03→20:52)
--- NOTE | 2017-01-03 20:25 | Internal Med Progress Note ---
Date of Encounter: 01/03/17 Time of Encounter: 09:00 - Assessment and plan (1) Paroxysmal atrial fibrillation Current Visit: Yes Status: Acute Assessment and plan: Converts to sinus rhythm now. On Eliquis for anticoagulation. Cardiology consult appreciated, rhythmol placed for rhythm control. (2) DVT prophylaxis Current Visit: No Status: Acute Assessment and plan: On Eliquis. (3) History of CVA (cerebrovascular accident) Current Visit: No Status: Chronic Assessment and plan: Continue Eliquis and atorvastatin (4) Left hip pain Current Visit: Yes Status: Acute Assessment and plan: MRI of L-Spine and hip shows disc protrusion on L4-5 and severe left hip osteoarthritis. No fracture. - Continue pain management. - Patient needs to see pain management as outpatient (5) Seizure disorder Current Visit: Yes Status: Acute Assessment and plan: Continue Keppra - Time Spent With Patient 25 - 35 minutes - Subjective Interval history: Patient is a 61-year-old male admitted for A. fib with RVR. His past medical history is significant for paroxysmal A. fib, history of CVA. Patient was seen and examined. Still complaining of left hip pain radiated to lateral femoral area. No palpitation. Heart rhythm converts to sinus. - Constitutional Vitals: Temp Pulse Resp BP Pulse Ox 97.8 F 70 18 136/93 96 01/03/17 15:23 01/03/17 15:23 01/03/17 15:23 01/03/17 15:23 01/03/17 15:23 General appearance: Present: A&O X 3, pleasant, no acute distress, answers questions appropriately - Head Head exam: Present: atraumatic, normocephalic - Eye Eye exam: Present: PERRL, conjuntiva pink, sclera anicteric Pupils: Present: PERRL - Neck Neck exam general surgery: Present: supple, trachea midline. Absent: lymphadenopathy - Respiratory Respiratory exam: Present: CTAB. Absent: accessory muscle use, rales, rhonchi, wheezes - Cardiovascular Cardiovascular exam: Present: RRR, +S1, +S2. Absent: diastolic murmur, gallop, rubs, systolic murmur - GI/Abdominal GI/Abdominal exam: Present: normal bowel sounds, soft, no peritoneal signs. Absent: distended, tenderness - Extremities Exam Extremities exam: Present: tenderness (Tenderness on left at femorus and buttock ), warm, radial pulses palpable and symmetrical. Absent: calf tenderness, cyanotic, pedal edema - Neurological Exam Neurological exam: Present: CN II-XII intact, oriented X3, no focal deficits. Absent: pronater drift, facial droop, speech deficit - Skin Skin exam: Present: dry, intact Internal Medicine: Result - Labs CBC & Chem 7: 01/02/17 19:55 01/03/17 06:23 Labs: BMP 01/03/17 06:23 Sodium 142 Potassium 4.5 Chloride 108 Carbon Dioxide 27 BUN 16 Creatinine 1.01 Glucose 97 Calcium 9.0 Cardiac Enzymes 01/03/17 Range/Units 06:23 Troponin I 0.00 (0-0.03) ng/mL Liver Function 01/03/17 Range/Units 06:23 Total Bilirubin 0.5 (0.2-1.2) mg/dL AST 28 (5-34) Units/L ALT 47 (0-55) Units/L Alkaline Phosphatase 119 (38-126) Units/L Albumin 3.0 L (3.5-5.0) g/dL - ABG Interpretation ABG results: PT/INR, D-dimer PT 12.4 Seconds (9.4-12.1) H 01/02/17 19:55 - Impressions Impressions Femur MRI 01/03/17 15:21 IMPRESSION: Severe left hip osteoarthritis. Moderate tendinosis of the left gluteus medius and minimus. Left greater trochanteric bursal thickening, nonspecific, however this can be seen in the setting of bursitis. D/ /03/2017 19:08:10 Andrew Owens MD / ghassan Interpreting Provider: Andrew Owens MD Hip MRI 01/03/17 15:21 IMPRESSION: Severe left hip osteoarthritis. Moderate tendinosis of the left gluteus medius and minimus. Left greater trochanteric bursal thickening, nonspecific, however this can be seen in the setting of bursitis. D/ /03/2017 19:08:10 Andrew Owens MD / ghassan Interpreting Provider: Andrew Owens MD Lumbar Spine MRI 01/03/17 15:21 IMPRESSION: Disc protrusion with caudal migration at L4-5 resulting in effacement of the left lateral recess and impingement of the traversing left L5 nerve root. D/ / William Fields MD / William Fields MD Interpreting Provider: William Fields MD Consult Discharge Plan - Plan Referrals: Oz Azevedo DO [Primary Care Provider] -
[2017-01-04] MEDS: *HR* OxyCODONE/APAP 5/325 TABLET PO PRN ×2 (05:05→18:26)
[2017-01-04] MEDS: Gabapentin 300 MG CAPSULE PO SCH ×3 (08:11→21:54)
[2017-01-04] MEDS: levETIRAcetam 250 MG TABLET PO SCH ×2 (08:11→21:54)
[2017-01-04] MEDS: APIXABAN 5 MG TABLET PO SCH ×2 (08:11→21:54)
[2017-01-04] MEDS: *HR* HYDROmorphone (PF) 1 MG/ML SYRINGE IVP PRN ×2 (08:13→21:53)
--- NOTE | 2017-01-04 12:09 | Cardiology Progress Note ---
Date of Encounter: 01/04/17 Time of Encounter: 12:07 Assessment and Plan (1) Paroxysmal atrial fibrillation Current Visit: Yes Status: Acute Known hx of PAF, previously failed Sotalol. Anticoagulated on Eliquis. Pt presented to ED for sciatic leg pain, found to be in A-Fib RVR rate 170s. Low BP, so pt was given one dose of IV digoxin, converted back to SR. Echo 04/22/16 EF 60%, normal LV, RV size and function. Holter 12/22/16: SR, rare PACs and PVCs. Given recurrence of PAF on both outpt and inpt setting, recommend rhythm control with a different antiarrhythmic, Rythmol 150mg Q8hrs. No recent ischemic evaluation, but unable to complete stress test due to sciatic pain--unable to lay flat under camera and unable to lay on left side for stress echo. Since pt has no hx of CAD and denies any chest pain or dyspnea , discussed with Dr. Yan Gonzalez and opted to start Rythmol without ischemic eval. He is now s/p 3 doses, maintaining SR. No PAF noted on tele. Baseline EKG QRS 90, QT/QTc 472/462ms from 12/21/16 when in SR. EKG this AM s/p 3 doses QRS 98ms, QT/QTc 409/415ms. Needs monitored for 5 doses, which will be tonight. Re-evaluate tomorrow AM. Pt reports missing one dose of Eliquis last night. If DCCV is warranted, would require SABINA. Discussion w patient/family: The assessment and plan as outlined above was discussed with the patient and/or family members who expressed understanding and agreement. All questions were answered. Thank you for involving us in the care of your patient. Please call with any questions. I will discuss all the above with Dr. Yan Gonzalez and make changes as necessary. Subjective Principal diagnosis: PAF Interval history: Rythmol initiated yesterday, s/p 3 doses. Denies acute cardiac complaints this AM. Reports sciatic pain is improved. Objective Vital Signs, Last 4 Hours Temp Pulse Resp BP Pulse Ox 01/04/17 11:26 98.5 F 69 16 106/71 99 Vital Signs Temp Pulse Resp BP Pulse Ox 01/04/17 11:26 98.5 F 69 16 106/71 99 01/04/17 07:06 98.2 F 81 16 127/80 99 01/04/17 04:54 98.1 F 64 20 105/68 97 01/04/17 04:44 98.1 F 64 20 105/68 97 01/04/17 00:00 98.8 F 62 18 93/66 93 01/03/17 21:00 98.4 F 88 20 133/87 97 01/03/17 20:56 96 01/03/17 15:23 97.8 F 70 18 136/93 96 Intake and Output 01/03/17 01/04/17 01/04/17 23:59 07:59 15:59 Intake Total 0 / 0 120 / 120 480 / 480 Balance 0 / 0 120 / 120 480 / 480 Intake: Oral 0 / 0 120 / 120 480 / 480 Other: Meal Breakfast Percent of Meal Consumed 100% # Voids 1 1 Weight 81.1 kg Patient Weight 01/04/17 23:59 Weight 81.1 kg General: Conversant, No Apparent Distress HEENT: Atraumatic, Normocephaly, Mucus Membranes Moist Neck: No JVD, Normal carotid pulses Cardiac: Reg Rate and Rhythm, Normal S1 and S2, No Murmur Lungs: Normal Breath Sounds, No Wheeze, Rales, Rhonchi Neuro: Alert and responsive, No focal deficits noted Abdomen: Soft, Non-Tender Skin: No rashes noted on visualized skin Musculoskeletal: No Chest Wall Tenderness Extremities: No Clubbing, No Cyanosis, No Edema, Normal Pulses Results 01/02/17 19:55 01/03/17 06:23 Impressions Femur MRI 01/03/17 15:21 IMPRESSION: Severe left hip osteoarthritis. Moderate tendinosis of the left gluteus medius and minimus. Left greater trochanteric bursal thickening, nonspecific, however this can be seen in the setting of bursitis. D/ /03/2017 19:08:10 Andrew Owens MD / [facility] Interpreting Provider: Andrwe Owens MD Hip MRI 01/03/17 15:21 IMPRESSION: Severe left hip osteoarthritis. Moderate tendinosis of the left gluteus medius and minimus. Left greater trochanteric bursal thickening, nonspecific, however this can be seen in the setting of bursitis. D/ / 01/03/2017 19:08:10 Andrew Owens MD / ghassan Interpreting Provider: Andrew Owens MD Lumbar Spine MRI 01/03/17 15:21 IMPRESSION: Disc protrusion with caudal migration at L4-5 resulting in effacement of the left lateral recess and impingement of the traversing left L5 nerve root. D/ / William Fields MD / William Fields MD Interpreting Provider: William Fields MD Active Medications Apixaban (Eliquis) 5 mg PO BID [facility] Stop: 07/05/17 09:01 Last Admin: 01/04/17 08:11 Dose: 5 mg Atorvastatin Calcium (Lipitor) 40 mg PO HS [facility] Stop: 07/05/17 21:01 Last Admin: 01/03/17 20:50 Dose: 40 mg Cyclobenzaprine HCl (Flexeril) 10 mg PO HS [facility] Stop: 07/04/17 22:16 Last Admin: 01/03/17 20:50 Dose: 10 mg Gabapentin (Neurontin) 300 mg PO TID [facility] Stop: 07/05/17 09:01 Last Admin: 01/04/17 08:11 Dose: 300 mg Hydromorphone HCl (Dilaudid) 1 mg IVP Q4HR PRN PRN Reason: SEVERE Pain 8-10 Stop: 07/05/17 14:11 Last Admin: 01/04/17 08:13 Dose: 1 mg Levetiracetam (Keppra) 500 mg PO BID [facility] Stop: 07/05/17 09:01 Last Admin: 01/04/17 08:11 Dose: 500 mg Metoprolol Tartrate (Lopressor) 25 mg PO BID [facility] Stop: 07/05/17 09:01 Last Admin: 01/04/17 08:11 Dose: 25 mg Oxycodone/Acetaminophen (Percocet 5/325) 1 each PO Q6HR PRN PRN Reason: moderate pain 5-7 Stop: 07/04/17 22:10 Last Admin: 01/04/17 05:05 Dose: 1 each Propafenone HCl (Rhythmol) 150 mg PO Q8H [facility] Stop: 07/05/17 14:01 Last Admin: 01/04/17 05:04 Dose: 150 mg - Imaging and Cardiology Echo: report reviewed - EKG Interpretation EKG results cardiology: other (12 hr tele AVG HR 72, SR, no significant pauses or arrhythmias) Consult Discharge Plan - Plan Referrals: Oz Azevedo DO [Primary Care Provider] -
--- NOTE | 2017-01-04 16:39 | Internal Med Progress Note ---
Date of Encounter: 01/04/17 Time of Encounter: 10:00 - Assessment and plan (1) Paroxysmal atrial fibrillation Current Visit: Yes Status: Acute Assessment and plan: Converts to sinus rhythm now. On Eliquis for anticoagulation. Cardiology consult appreciated, rhythmol placed for rhythm control. Continue monitor patient. (2) DVT prophylaxis Current Visit: No Status: Acute Assessment and plan: On Eliquis. (3) History of CVA (cerebrovascular accident) Current Visit: No Status: Chronic Assessment and plan: Continue Eliquis and atorvastatin (4) Left hip pain Current Visit: Yes Status: Acute Assessment and plan: MRI of L-Spine and hip shows disc protrusion on L4-5 and severe left hip osteoarthritis. No fracture. - Continue pain management. - Patient needs to see pain management as outpatient (5) Seizure disorder Current Visit: Yes Status: Acute Assessment and plan: Continue Keppra - Time Spent With Patient 25 - 35 minutes - Subjective Interval history: Patient is a 61-year-old male admitted for A. fib with RVR. His past medical history is significant for paroxysmal A. fib, history of CVA. Patient was seen and examined. Still complaining of left hip pain radiated to lateral femoral area, better controlled with pain med. No palpitation. Heart rhythm keep in sinus rhythm. - Constitutional Vitals: Temp Pulse Resp BP Pulse Ox 99.2 F 73 16 117/77 96 01/04/17 15:32 01/04/17 15:32 01/04/17 15:32 01/04/17 15:32 01/04/17 15:32 General appearance: Present: A&O X 3, pleasant, no acute distress, answers questions appropriately - Head Head exam: Present: atraumatic, normocephalic - Eye Eye exam: Present: PERRL, conjuntiva pink, sclera anicteric Pupils: Present: PERRL - Neck Neck exam general surgery: Present: supple, trachea midline. Absent: lymphadenopathy - Respiratory Respiratory exam: Present: CTAB. Absent: accessory muscle use, rales, rhonchi, wheezes - Cardiovascular Cardiovascular exam: Present: RRR, +S1, +S2. Absent: diastolic murmur, gallop, rubs, systolic murmur - GI/Abdominal GI/Abdominal exam: Present: normal bowel sounds, soft, no peritoneal signs. Absent: distended, tenderness - Extremities Exam Extremities exam: Present: warm, radial pulses palpable and symmetrical. Absent : calf tenderness, cyanotic, pedal edema - Neurological Exam Neurological exam: Present: CN II-XII intact, oriented X3, no focal deficits. Absent: pronater drift, facial droop, speech deficit - Skin Skin exam: Present: dry, intact Internal Medicine: Result - Labs CBC & Chem 7: 01/02/17 19:55 01/03/17 06:23 - ABG Interpretation ABG results: PT/INR, D-dimer PT 12.4 Seconds (9.4-12.1) H 01/02/17 19:55 - Impressions Impressions Femur MRI 01/03/17 15:21 IMPRESSION: Severe left hip osteoarthritis. Moderate tendinosis of the left gluteus medius and minimus. Left greater trochanteric bursal thickening, nonspecific, however this can be seen in the setting of bursitis. D/ /03/2017 19:08:10 Andrew Owens MD / [facility]an Interpreting Provider: Andrew Owens MD Hip MRI 01/03/17 15:21 IMPRESSION: Severe left hip osteoarthritis. Moderate tendinosis of the left gluteus medius and minimus. Left greater trochanteric bursal thickening, nonspecific, however this can be seen in the setting of bursitis. D/ /03/2017 19:08:10 Andrew Owens MD / [facility]assan Interpreting Provider: Andrew Owens MD Lumbar Spine MRI 01/03/17 15:21 IMPRESSION: Disc protrusion with caudal migration at L4-5 resulting in effacement of the left lateral recess and impingement of the traversing left L5 nerve root. D/ / William Fields MD / William Fields MD Interpreting Provider: William Fields MD Consult Discharge Plan - Plan Referrals: Oz Azevedo DO [Primary Care Provider] -
[2017-01-05 05:27] LABS: Basophils # 0.1 K/mcL (0.0-0.2); Eosinophils # 0.2 K/mcL (0.0-0.6); Eosinophils % 2.9 %; Hematocrit 36.6 % (37.5-50.1); Immature Granulocytes % 0.5 % (0-4); Immature Platelets 2.8 % (1.1-6.1); Lymphocytes # 2.2 K/mcL (0.6-4.6); Lymphocytes % 35.3 %; Mean Corpuscular HGB Conc 32.8 g/dL (31.6-35.5); Mean Corpuscular Hemoglobin 29.2 pg (28.0-33.3); Mean Corpuscular Volume 89.1 fL (83.0-100.0); Mean Platelet Volume 9.5 fL (9.4-12.4); Monocytes # 0.6 K/mcL (0.0-1.3); Monocytes % 10.1 %; Neutrophils # 3.1 K/mcL (1.6-8.9); Nucleated Red Blood Cells 0.5 /100 WBC (0); Platelet Count 236 K/mcL (140-400); Red Blood Count 4.11 M/mcL (4.19-5.50); Red Cell Distribution Width 12.7 % (11.5-14.5); Segmented Neutrophils % 50.2 %
[2017-01-05 06:33] LABS: BUN/Creatinine Ratio 16 (6-26); Blood Urea Nitrogen 16 mg/dL (8-26); Calcium 9.5 mg/dL (8.6-10.8); Carbon Dioxide 27 mEq/L (19-29); Chloride 104 mEq/L (98-109); Glucose 89 mg/dL (70-99); Osmolality,Calculated 289 (280-300); Potassium 4.2 mEq/L (3.5-4.5); Sodium 139 mEq/L (136-145); eGFR For African Americans > 60 (> 60); eGFR For Non-African Americans > 60 (> 60)
[2017-01-05] MEDS: *HR* HYDROmorphone (PF) 1 MG/ML SYRINGE IVP PRN (06:33)
[2017-01-05 07:38] VITALS: BP 119/79
--- NOTE | 2017-01-05 08:17 | Cardiology Progress Note ---
Date of Encounter: 01/05/17 Time of Encounter: 08:15 Assessment and Plan (1) Paroxysmal atrial fibrillation Current Visit: Yes Status: Acute Per Cardiology: Known hx of PAF, previously failed Sotalol. Anticoagulated on Eliquis. Pt presented to ED for sciatic leg pain, found to be in A-Fib RVR rate 170s. Low BP , so pt was given one dose of IV digoxin, converted back to SR. Echo 04/22/16 EF 60%, normal LV, RV size and function. No recent ischemic evaluation, but unable to complete stress test due to sciatic pain--unable to lay flat under camera and unable to lay on left side for stress echo. Since pt has no hx of CAD and denies any chest pain or dyspnea, discussed with Dr. Yan Gonzalez and opted to start Rythmol without ischemic eval. He is now s/p 6 doses Rythmol 150mg Q8hrs, SR. No PAF noted on tele. ECG shows SR 62, QRS 98ms. Cardiology will s/o, re-consult PRN, f/u scheduled. All questions answered. Anticoagulated with Eliquis-- missed a dose previous night. Discussion w patient/family: The assessment and plan as outlined above was discussed with the patient and/or family members who expressed understanding and agreement. All questions were answered. Thank you for involving us in the care of your patient. Please call with any questions. Subjective Principal diagnosis: PAF Interval history: Patient denies any CP, SOB, Palps. Objective Vital Signs, Last 4 Hours Temp Pulse Resp BP Pulse Ox 01/05/17 07:37 98.0 F 64 18 119/79 97 01/05/17 05:47 98.9 F 65 15 126/91 96 General: Conversant, No Apparent Distress Cardiac: Reg Rate and Rhythm, Normal S1 and S2, No Murmur Lungs: Normal Breath Sounds, No Wheeze, Rales, Rhonchi Skin: No rashes noted on visualized skin Extremities: No Edema Results 01/05/17 04:51 01/05/17 04:51 Lab Results 01/05/17 01/05/17 04:51 04:51 WBC 6.1 Hgb 12.0 L D Hct 36.6 L Plt Count 236 Sodium 139 Potassium 4.2 Chloride 104 Carbon Dioxide 27 BUN 16 Creatinine 1.01 Glucose 89 Calcium 9.5 - Imaging and Cardiology Echo: report reviewed - EKG Interpretation EKG results cardiology: other (24-hour telemetry shows average heart rate 71, remains sinus rhythm, no A. fib noted, currently sinus rhythm in the 70s) Consult Discharge Plan - Plan Referrals: Oz Azevedo DO [Primary Care Provider] -
[2017-01-05] MEDS: levETIRAcetam 250 MG TABLET PO SCH (10:06)
[2017-01-05] MEDS: Gabapentin 300 MG CAPSULE PO SCH ×2 (10:06→15:18)
[2017-01-05] MEDS: APIXABAN 5 MG TABLET PO SCH (10:06)
[2017-01-05] MEDS: *HR* OxyCODONE/APAP 10/325 TABLET PO PRN ×2 (10:07→15:18)
--- NOTE | 2017-01-05 12:03 | Electrocardiograph Report ---
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
--- NOTE | 2017-01-05 12:57 | Discharge Summary ---
Date of Encounter: 01/05/17 Time of Encounter: 10:00 - Discharge Diagnosis (1) Paroxysmal atrial fibrillation Priority: Primary Status: Acute (2) DVT prophylaxis Priority: Secondary Status: Acute (3) History of CVA (cerebrovascular accident) Priority: Secondary Status: Chronic (4) Left hip pain Priority: Primary Status: Acute (5) Seizure disorder Priority: Secondary Status: Acute - Discharge Medications Prescriptions: OxyCODONE/APAP 10/325 [Percocet 10/325 MG] 1 each PO Q4HR PRN #20 tab PRN Reason: Pain Cyclobenzaprine [Flexeril] 10 mg PO HS #10 tab Docusate [Colace] 100 mg PO BID PRN #60 PRN Reason: Constipation Propafenone [Rhythmol] 150 mg PO Q8H #90 tab Home Medications: Apixaban [Eliquis] 5 mg PO BID #60 tablet 05/06/16 [Rx] Atorvastatin [Lipitor] 40 mg PO HS tablet 05/06/16 [Rx] Metoprolol [Lopressor] 25 mg PO BID #60 tablet 05/06/16 [Rx] Acetaminophen [Tylenol] 500 mg PO Q6H PRN 01/02/17 [History] Gabapentin [Neurontin] 300 mg PO TID 01/02/17 [History] LevETIRAcetam [Keppra] 500 mg PO BID 01/02/17 [History] Cyclobenzaprine [Flexeril] 10 mg PO HS #10 tab 01/05/17 [Rx] Docusate [Colace] 100 mg PO BID PRN #60 01/05/17 [Rx] OxyCODONE/APAP 10/325 [Percocet 10/325 MG] 1 each PO Q4HR PRN #20 tab 01/05/17 [ Rx] Propafenone [Rhythmol] 150 mg PO Q8H #90 tab 01/05/17 [Rx] Allergies/Adverse Reactions: 3 Allergy/AdvReac Type Severity Reaction Status Date / Time No Known Allergies Allergy Verified 01/02/17 18:08 Procedures/tests Complete & Pending: Procedures Performed prior 72 hours Category Date Time Status MR femur LT wo con [MR] Stat MRI 01/03/17 15:21 Draft MR hip LT wo con [MR] Stat MRI 01/03/17 15:21 Draft MR lumbar spine wo con [MR] Stat MRI 01/03/17 15:21 Completed ECG 12 lead ECG [ECG] AM 0600 Y 01/03/17 06:00 Completed EKG [ECG 12 lead ECG] [ECG] AM 0600 Y 01/04/17 06:00 Completed EKG [ECG 12 lead ECG] [ECG] AM 0600 Y 01/05/17 06:00 Completed EV echocardiogram Stat Y 01/03/17 22:07 Completed Date of admission: 01/02/17 21:03 Primary care physician: Oz Azevedo DO Consults: 01/02/17 22:40 Consult to Cardiology [CONS] Routine Comment: Consulting Provider: Cardiology [place] Reason for Consult: A-fib RVR, patient of Dr. Jonas Call Completed: No Discharging clinician: Guevara Tolliver Anticipated date of discharge: 01/05/17 - Patient Status Disposition: Home, Self-Care Condition: Good Functional capacity at discharge: independent ambulation Overall status at discharge: patient is back to baseline - Discharge Instructions Instructions: Atrial Fibrillation (DC) Follow Up With: Oz Azevedo DO [Primary Care Provider] - - Diet and Activity Activity: increase activity as tolerated Diet: advance to your usual diet, low salt diet Interval History: HPI: Mr. Betancur is a 61 year old male with PMH of paroxysmal A-fib, ischemic stroke x2, seizures, and chronic back pain that presents complaining of constant , sharp stabbing left sided back pain radiating to his left hamstring since participating in physical therapy today. Pain is moderate in severity and worse with walking and ROM. Patient reports similar pain for the past 8 months and has tried muscle relaxants, OTC pain medications, and heat/ cold packs without relief. He reports drinking lots of coffee today secondary to anxiety from his hip pain. In the ED, patient started c/o palpitations after laying on his left side during x-rays of his hip and back. EKG revealed A. fib with RVR, rate 170 in the ED. Patient reports taking Eliquis and was switched from Sotolol to Metoprolol after hospitalization for similar episode on 05/06/16. Patient sees Dr. Jonas in clinic and reports stopping Cardizem PO and Sotalol. Patient denies fever, chills, CP, SOB, abd pain, N/V/D, thyroid disease, edema, incontinence of bowel/bladder, or recent illness. is at bedside. Hospital course: Mr. Betancur is a 61 year old male admitted for A. fib RVR. Patient has history of paroxysmal A. fib and was on Eliquis. Patient was placed on IV digoxin and his heart rate convert to sinus rhythm. Cardiology consult saw patient. Place patient on rythmol 150 mg every 8 hours for rhythm control. Patient also complaining of left-sided hip pain. MRI low back and hip shows radiculopathy and hip joint osteoarthritis, no acute fracture. Patient was given pain medication and will follow-up pain management as outpatient. I saw and examined the patient today. Denies palpitation, shortness of breath, or chest pain. Complaining of mild left hip pain, generally controlled by pain medication. Vitals are stable. Cardiology saw patient and signed off today. The patient will be discharged to home and follow-up as outpatient. - Time Spent with Patient Total time spent providing and/or coordinating discharge services: 40 minutes Greater than 30 minutes - Constitutional Vitals: Temp Pulse Resp BP Pulse Ox 98.0 F 64 18 119/79 97 01/05/17 07:37 01/05/17 07:37 01/05/17 07:37 01/05/17 07:37 01/05/17 09:00 General appearance: Present: A&O X 3, pleasant, no acute distress, answers questions appropriately - Head Head exam: Present: atraumatic, normocephalic - Eye Eye exam: Present: PERRL, conjuntiva pink, sclera anicteric Pupils: Present: PERRL - Neck Neck exam general surgery: Present: supple, trachea midline. Absent: lymphadenopathy - Respiratory Respiratory exam: Present: CTAB. Absent: accessory muscle use, rales, rhonchi, wheezes - Cardiovascular Cardiovascular exam: Present: RRR, +S1, +S2. Absent: diastolic murmur, gallop, rubs, systolic murmur - GI/Abdominal GI/Abdominal exam: Present: normal bowel sounds, soft, no peritoneal signs. Absent: distended, tenderness - Extremities Exam Extremities exam: Present: warm, radial pulses palpable and symmetrical. Absent : calf tenderness, cyanotic, pedal edema - Neurological Exam Neurological exam: Present: CN II-XII intact, oriented X3, no focal deficits. Absent: pronater drift, facial droop, speech deficit - Skin Skin exam: Present: dry, intact
--- NOTE | 2017-01-09 20:38 | Electrocardiograph Report ---
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
--- NOTE | 2017-01-09 20:46 | Electrocardiograph Report ---
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
== END 2017-01-05 15:42 | disposition home or self-care (01) ==
LOC: 2NENU 17:47 → EMEROO 17:47 → SUATTDRO 21:03 → 2NENU 21:33
PROVIDERS: ADMIT Family Medicine; ATTEND Internal Medicine

== ENCOUNTER 2017-06-20 08:25 | Observation (INO) ==
[2017-06-20] MEDS ORDERED: 0.9 % Sodium Chloride 1,000 ML IVC ONE (08:34)
--- NOTE | 2017-06-20 08:40 | Emergency Department Note ---
Disposition Clinical Impression: Atrial fibrillation with controlled ventricular response Disposition: Admitted As Inpatient Condition: Fair Forms: ED Satisfaction Letter Time of Disposition: 09:33 Arrhythmia/Palpitations HPI - General Chief Complaint: ED Arrhythmia/Palpitations Stated Complaint: afib/rvr called Time Seen by Provider: 06/20/17 08:27 Source: patient, other (Dr. Jonas called the emergency department) Mode of arrival: ambulatory Limitations: no limitations - History of Present Illness HPI Narrative: Patient sent from the cardiology office due to atrial fibrillation with RVR. Patient has a known history of atrial fibrillation. 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 Duration: constant Context: occurred during rest Arrhythmia History: atrial fibrillation Associated symptoms: Reports: denies other symptoms - Related Data Home Medications Medication Instructions Recorded Confirmed Acetaminophen [Tylenol] 500 mg PO Q6H PRN 01/02/17 06/20/17 Gabapentin [Neurontin] 300 mg PO TID 01/02/17 06/20/17 LevETIRAcetam [Keppra] 500 mg PO BID 01/02/17 06/20/17 dilTIAZem HCl [Diltiazem 24Hr ER] 120 mg PO DAILY 06/20/17 06/20/17 Previous Rx's Medication Instructions Recorded Apixaban [Eliquis] 5 mg PO BID #60 tablet 05/06/16 Atorvastatin [Lipitor] 40 mg PO HS tablet 05/06/16 Metoprolol [Lopressor] 25 mg PO BID #60 tablet 05/06/16 Allergies Allergy/AdvReac Type Severity Reaction Status Date / Time No Known Allergies Allergy Verified 01/02/17 18:08 All systems ED: reviewed and negative except as stated. Constitutional: Reports: as per HPI Eyes: Reports: as per HPI ENT ED: Reports: as per HPI Cardiovascular: Reports: palpitations Respiratory: Reports: as per HPI Gastrointestinal: Reports: as per HPI Genitourinary: Reports: as per HPI Musculoskeletal: Reports: as per HPI Integumentary: Reports: as per HPI Neurological: Reports: as per HPI Psychiatric: Reports: as per HPI Endocrine: Reports: as per HPI Hematological/Lymphatic: Reports: as per HPI Allergic/Immunologic: Reports: as per HPI Past Medical History - Past Medical History Source: patient Medical history: Reports: atrial fibrillation, CVA, hyperlipidemia, seizures, other Surgical history: Reports: cataract Psychiatric history: Reports: no psych history - Social History Smoking Status: Never smoker Smokeless Tobacco Status: No Alcohol use: Reports: none Drug use: Reports: none Physical Exam - General Limitations: no limitations General appearance: alert, in no apparent distress - Head Head exam: atraumatic - Eye Eye exam: Present: normal appearance - ENT ENT exam: normal exam - Neck Neck exam: Present: normal inspection, full ROM - Chest Chest inspection: Present: normal inspection, symmetric chest wall rise - Respiratory Respiratory exam: Present: normal lung sounds bilaterally - Cardiovascular Cardiovascular exam: Present: tachycardia, irregular rhythm - Rectal Exam Rectal exam: Present: deferred - Expanded Lower Extremity Exam Hip/Pelvis exam: Present: normal inspection - Neurological Exam Neurological exam: Present: alert, oriented X3, CN II-XII intact - Psychiatric Psychiatric exam: Present: normal affect, normal mood - Skin Skin exam: Present: warm, dry, intact Course Course Narrative: Patient presents from the cardiology office with palpitations. EKG shows a narrow complex tachycardia which is an irregularly irregular rhythm. I will administer Cardizem for rate control Vital Signs Temperature 98.1 F 06/20/17 08:28 Pulse Rate 148 06/20/17 08:28 Respiratory Rate 16 06/20/17 08:28 Blood Pressure 144/106 06/20/17 08:28 O2 Sat by Pulse Oximetry 97 06/20/17 08:28 Temperature 98.1 F 06/20/17 08:28 Pulse Rate 142 06/20/17 09:21 Respiratory Rate 14 06/20/17 09:21 Blood Pressure 123/34 06/20/17 09:21 O2 Sat by Pulse Oximetry 95 06/20/17 09:21 Oxygen Delivery Oxygen Delivery Room Air Arrhythmia/Palpitations - Medical Records Medical records reviewed: Yes I reviewed the patient's medical records. Previous ECG reviewed - Lab Data Lab results reviewed: Yes I reviewed the patient's lab results. Result diagrams: 06/20/17 08:49 06/20/17 08:49 Lab Results 06/20/17 06/20/17 06/20/17 Range/Units 08:49 08:49 08:49 WBC 6.8 (4.3-11.1) K/mcL RBC 5.05 (4.19-5.50) M/mcL Hgb 15.4 (12.9-16.9) g/dL Hct 47.2 (37.5-50.1) % MCV 93.5 (83.0-100.0) fL MCH 30.5 (28.0-33.3) pg MCHC 32.6 (31.6-35.5) g/dL RDW 14.4 (11.5-14.5) % Plt Count 244 (140-400) K/mcL MPV 10.2 (9.4-12.4) fL Immature Gran % 0.3 (0-4) % Seg Neutrophils % 56.7 % Lymphocytes % 31.4 % Monocytes % 8.8 % Eosinophils % 1.8 % Basophils % 1.0 % Neutrophils # 3.9 (1.6-8.9) K/mcL Lymphocytes # 2.1 (0.6-4.6) K/mcL Monocytes # 0.6 (0.0-1.3) K/mcL Eosinophils # 0.1 (0.0-0.6) K/mcL Basophils # 0.1 (0.0-0.2) K/mcL PT 12.6 H (9.4-12.1) Seconds INR 1.2 APTT 33.7 (26.0-36.0) Seconds Sodium 138 (136-145) mEq/L Potassium 4.5 (3.5-5.1) mEq/L Chloride 105 (98-107) mEq/L Carbon Dioxide 26 (23-29) mEq/L BUN 16 (8-23) mg/dL Creatinine 1.10 (0.70-1.30) mg/dL Est GFR ( Amer) > 60 (> 60) Est GFR (Non-Af Amer) > 60 (> 60) BUN/Creatinine Ratio 15 (6-26) Glucose 119 H (70-105) mg/dL Calculated Osmolality 288 (280-300) Calcium 9.9 (8.6-10.3) mg/dL Magnesium 2.0 (1.6-2.6) mg/dL Troponin I (< 0.04) ng/mL 06/20/17 Range/Units 08:49 WBC (4.3-11.1) K/mcL RBC (4.19-5.50) M/mcL Hgb (12.9-16.9) g/dL Hct (37.5-50.1) % MCV (83.0-100.0) fL MCH (28.0-33.3) pg MCHC (31.6-35.5) g/dL RDW (11.5-14.5) % Plt Count (140-400) K/mcL MPV (9.4-12.4) fL Immature Gran % (0-4) % Seg Neutrophils % % Lymphocytes % % Monocytes % % Eosinophils % % Basophils % % Neutrophils # (1.6-8.9) K/mcL Lymphocytes # (0.6-4.6) K/mcL Monocytes # (0.0-1.3) K/mcL Eosinophils # (0.0-0.6) K/mcL Basophils # (0.0-0.2) K/mcL PT (9.4-12.1) Seconds INR APTT (26.0-36.0) Seconds Sodium (136-145) mEq/L Potassium (3.5-5.1) mEq/L Chloride (98-107) mEq/L Carbon Dioxide (23-29) mEq/L BUN (8-23) mg/dL Creatinine (0.70-1.30) mg/dL Est GFR ( Amer) (> 60) Est GFR (Non-Af Amer) (> 60) BUN/Creatinine Ratio (6-26) Glucose (70-105) mg/dL Calculated Osmolality (280-300) Calcium (8.6-10.3) mg/dL Magnesium (1.6-2.6) mg/dL Troponin I < 0.03 (< 0.04) ng/mL - Radiology Data Radiology results reviewed: Yes I reviewed the patient's radiology results. - EKG Data EKG attestation: Yes I reviewed and interpreted this EKG. EKG results narrative: Irregularly irregular rhythm weight 148 QRS 105/QTC 288/373. Incomplete right bundle branch block Critical Care Time Critical Care Time: Yes Total Critical Care Time: 30 Attestation: The high probability of a clinically significant, sudden or life threatening deterioration of the [] system(s) required my full and direct attention, intervention and personal management. The aggregate critical care time was [] minutes. This time is in addition to time spent performing reported procedures but includes the following: [] Data Review and interpretation [] Patient assessment and monitoring of vital signs [] Documentation [] Medication orders and management
[2017-06-20 08:59] LABS: Basophils # 0.1 K/mcL (0.0-0.2); Eosinophils # 0.1 K/mcL (0.0-0.6); Eosinophils % 1.8 %; Hematocrit 47.2 % (37.5-50.1); Hemoglobin 15.4 g/dL (12.9-16.9); Immature Granulocytes % 0.3 % (0-4); Lymphocytes # 2.1 K/mcL (0.6-4.6); Lymphocytes % 31.4 %; Mean Corpuscular HGB Conc 32.6 g/dL (31.6-35.5); Mean Corpuscular Hemoglobin 30.5 pg (28.0-33.3); Mean Corpuscular Volume 93.5 fL (83.0-100.0); Mean Platelet Volume 10.2 fL (9.4-12.4); Monocytes # 0.6 K/mcL (0.0-1.3); Monocytes % 8.8 %; Neutrophils # 3.9 K/mcL (1.6-8.9); Platelet Count 244 K/mcL (140-400); Red Blood Count 5.05 M/mcL (4.19-5.50); Red Cell Distribution Width 14.4 % (11.5-14.5); Segmented Neutrophils % 56.7 %
[2017-06-20 09:07] LABS: INR 1.2; Prothrombin Time 12.6 Seconds (9.4-12.1)
[2017-06-20 09:10] LABS: Activated Partial Thrombo Time 33.7 Seconds (26.0-36.0)
[2017-06-20 09:19] LABS: BUN/Creatinine Ratio 15 (6-26); Blood Urea Nitrogen 16 mg/dL (8-23); Calcium 9.9 mg/dL (8.6-10.3); Carbon Dioxide 26 mEq/L (23-29); Chloride 105 mEq/L (98-107); Glucose 119 mg/dL (70-105); Osmolality,Calculated 288 (280-300); Potassium 4.5 mEq/L (3.5-5.1); Sodium 138 mEq/L (136-145); eGFR For Non-African Americans > 60 (> 60)
--- NOTE | 2017-06-20 11:22 | Internal Med History&Physical ---
Date of Encounter: 06/20/17 Time of Encounter: 11:19 Assessment and Plan (1) Hyperlipidemia Current visit: Yes Status: Chronic Chronic resume home medication Qualifiers: Hyperlipidemia type: pure hypercholesterolemia Qualified Code(s): E78.00 - Pure hypercholesterolemia, unspecified; E78.0 - Pure hypercholesterolemia (2) Seizures Current visit: Yes Status: Chronic No recent episode resume home medication (3) Atrial fibrillation with controlled ventricular response Current visit: Yes Status: Acute Patient started on Cardizem drip retches better control will consult cardiology will follow-up (4) CVA (cerebral vascular accident) Current visit: No Status: Chronic Qualifiers: CVA mechanism: embolism Precerebral and cerebral artery: posterior cerebral artery Laterality of affected vessel: right Qualified Code(s): I63.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 Betancur is a 61 year old male Patient with history of atrial fibrillation, CVA, high cholesterol, seizure. Patient was seen in cardiology office noted to be in atrial fibrillation with rapid ventricular response and then sent to the emergency room to be admitted started on Cardizem drip and heart rate is down from 140 now to low 100 denies any chest pain he said he ran out of some of his cardiac medication has been about 6 months is not sure of name of medication byt sounds like propafenone saays usually keep him in sinus rhythm. Patient will be admitted continue Cardizem and Cardiologic follow-up. Past Med Surg Social Fam HX - Past Medical History Medical history: atrial fibrillation, CVA, hyperlipidemia, seizures, other Psychiatric history: no psych history - Past Surgical History Surgical History: cataract - Social History Smoking Status: Never smoker Smokeless Tobacco Status: No Alcohol use: none Drug use: none - Family History Father Living Status: Hx Family Cancer: Yes (Cancer) Brother Hx Family Cardiac Disorders: Yes (Heart disease) Internal Medicine - H&P: Meds Apixaban [Eliquis] 5 mg PO BID #60 tablet 05/06/16 [Rx] Atorvastatin [Lipitor] 40 mg PO HS tablet 05/06/16 [Rx] Metoprolol [Lopressor] 25 mg PO BID #60 tablet 05/06/16 [Rx] Acetaminophen [Tylenol] 500 mg PO Q6H PRN 01/02/17 [History] Gabapentin [Neurontin] 300 mg PO TID 01/02/17 [History] LevETIRAcetam [Keppra] 500 mg PO BID 01/02/17 [History] dilTIAZem HCl [Diltiazem 24Hr ER] 120 mg PO DAILY 06/20/17 [History] 3 Allergy/AdvReac Type Severity Reaction Status Date / Time No Known Allergies Allergy Verified 01/02/17 18:08 All Systems PM: A 10-system review of systems was performed and is negative for pertinent findings except as documented above in the HPI. - Constitutional Constitutional: no chills, no fever(s), no night sweats - EENT Eyes: no change in vision, no discharge, no pain, no photophobia Ears: no ear discharge, no ear pain, no tinnitus Nose, mouth and throat: no dysphagia, no nasal discharge, no neck pain, no sore throat - Cardiovascular Cardiovascular ROS IM: palpitations - Respiratory Respiratory: no cough, no dyspnea, no wheezing, no excessive phlegm production - Gastrointestinal Gastrointestinal: no abdominal pain, no diarrhea, no hematemesis, no hematochezia, no melena, no nausea, no vomiting - Musculoskeletal Musculoskeletal ROS IM: no numbness, no tingling - Constitutional Vitals: Temp Pulse Resp BP Pulse Ox 98.1 F 82 15 90/75 98 06/20/17 08:28 06/20/17 11:09 06/20/17 11:09 06/20/17 11:09 06/20/17 11:09 - Head Head exam: Present: atraumatic, normocephalic - Neck Neck exam general surgery: Present: supple, trachea midline. Absent: lymphadenopathy - Cardiovascular Cardiovascular exam: Present: irregular rhythm - GI/Abdominal GI/Abdominal exam: Present: normal bowel sounds, soft, no peritoneal signs. Absent: distended, tenderness Internal Med - H&P Results - Labs CBC & Chem 7: 06/20/17 08:49 06/20/17 08:49 Labs: Short CBC 06/20/17 Range/Units 08:49 WBC 6.8 (4.3-11.1) K/mcL Hgb 15.4 (12.9-16.9) g/dL Hct 47.2 (37.5-50.1) % Plt Count 244 (140-400) K/mcL Neutrophils # 3.9 (1.6-8.9) K/mcL BMP 06/20/17 08:49 Sodium 138 Potassium 4.5 Chloride 105 Carbon Dioxide 26 BUN 16 Creatinine 1.10 Glucose 119 H Calcium 9.9 Cardiac Enzymes 06/20/17 Range/Units 08:49 Troponin I < 0.03 (< 0.04) ng/mL - Impressions ITS Impressions Chest X-Ray 06/20/17 08:34 IMPRESSION: No acute cardiopulmonary process. D/ / 06/20/2017 10:40:41 Marshall Benavides MD / marcia Interpreting Provider: Marshall Benavides MD
[2017-06-20] MEDS ORDERED: traMADol 50 MG TABLET PO PRN (11:25)
[2017-06-20] MEDS ORDERED: Acetaminophen 325 MG TABLET PO PRN (11:25)
[2017-06-20] MEDS ORDERED: Naloxone 0.4 MG/ML INJ IVP PRN (11:25)
[2017-06-20 12:52] LABS: Thyroid Stimulating Hormone 1.604 mcIU/mL (0.340-5.600)
[2017-06-20] MEDS: Gabapentin 300 MG CAPSULE PO SCH ×2 (15:36→21:47)
[2017-06-20] MEDS ORDERED: *HR* LORazepam 2 MG/ML VIAL IVP PRN (19:04)
[2017-06-20] MEDS: Apixaban 5 MG TABLET PO SCH (21:46)
[2017-06-20] MEDS: levETIRAcetam 250 MG TABLET PO SCH (21:46)
[2017-06-21 04:29] LABS: BUN/Creatinine Ratio 16 (6-26); Blood Urea Nitrogen 18 mg/dL (8-23); Calcium 9.1 mg/dL (8.6-10.3); Carbon Dioxide 28 mEq/L (23-29); Chloride 110 mEq/L (98-107); Chol/HDL Ratio 2.5 (0-4.9); Cholesterol 172 mg/dL (< 200); Glucose 102 mg/dL (70-105); HDL Cholesterol 68 mg/dL (40-59); LDL Cholesterol,Calculated 91 mg/dL (0-99); Magnesium 1.9 mg/dL (1.6-2.6); Osmolality,Calculated 296 (280-300); Potassium 4.1 mEq/L (3.5-5.1); Sodium 142 mEq/L (136-145); Triglycerides 67 mg/dL (< 150); eGFR For Non-African Americans > 60 (> 60)
[2017-06-21] MEDS ORDERED: *HR* LORazepam 2 MG/ML VIAL IVP PRN ×3 (08:02)
[2017-06-21] MEDS: Gabapentin 300 MG CAPSULE PO SCH ×3 (10:29→20:47)
[2017-06-21] MEDS: Folic Acid 1 MG TABLET PO SCH (10:29)
[2017-06-21] MEDS: Apixaban 5 MG TABLET PO SCH ×2 (10:29→20:47)
[2017-06-21] MEDS: levETIRAcetam 250 MG TABLET PO SCH ×2 (10:29→20:47)
[2017-06-21] MEDS: Thiamine (B-1) 100 MG TABLET PO SCH (10:29)
--- NOTE | 2017-06-21 12:42 | Electrophysiology Consult Note ---
<Leandra Michelle - Last Filed: 06/21/17 12:47> Date of Encounter: 06/21/17 Time of Encounter: 09:00 Assessment and Plan (1) Paroxysmal atrial fibrillation Status: Chronic Per cardiology: -Known PAF. Previously on rhythmol, however stopped taking due to no refills given at time of discharge. -Was a.fib RVR during outpateint cardiology visit and was recommended for ER evaluation. -Was given cardizem in ER and now SR. -ECG on admisison with a.fib RVR HR 148, QRS 105ms. -On eliquis for anticoagulation. Denies missed doses. -TTE 12/2016 with LVEF 55-60%, mild biatrial enlargement, mild MR. -Discussed with Dr.John Gonzalez, will resume rhythmol 150mg Q8 hours. -Will check daily ECGs. -Will continue to monitor. Discussion w patient/family: The assessment and plan as outlined above was discussed with the patient who expressed understanding and agreement. All questions were answered. Thank you for involving us in the care of your patient. Please call with any questions. Discussed and reviewed with Dr.John Gonzalez. History of Present Illness Consult date: 06/20/17 Requesting physician: Juan Jose Russo Consult reason: a.fib RVR Chief complaint: high HR History of present illness: Mr. Beatncur is a 61 year old male with a relevant past medical history of TIA , PAF, CVA. Patient presented to [facility] after being seen by outpatient cardiology and noted to be in a.fib RVR. Patient has a history of a.fib and was previously on rhythmol, however he states he did not know he needed to continue to take since there were no refills on the RX that was given at time of discharge. Patient reports hasnt been taking since 12/2016. Pateint is on eliquis for anticoagulation. Denies missed doses of eliquis. Past Med Surg Social Fam HX - Past Medical History Attestation: Yes The following information was validated with the patient. Source: patient, old records reviewed Medical history: atrial fibrillation, CVA, hyperlipidemia, seizures, other Psychiatric history: no psych history - Past Surgical History Surgical History: cataract - Social History Smoking Status: Former smoker Smokeless Tobacco Status: No Alcohol use: none Drug use: none - Family History Father Living Status: Hx Family Cancer: Yes (Cancer) Brother Age: 63 Living Status: Still Living Hx Family Cardiac Disorders: No Hx Family Respiratory Disorders: No Hx Family Cancer: No Hx Family GI Disorders: No Hx Family Genitourinary Disorders: No Hx Family Endocrine Disorder: No Hx Family Musculoskeletal Disorders: No Hx Family Neuromuscular Disorders: No Hx Family Neurologic Disorders: No Hx Family HEENT Disorders: No Hx Family Autoimmune Disorders: No Hx Family Reproductive Disorders: No Hx Family Psychosocial Disorders: No Hx Family Medical Disorders: No Medications and Allergies Apixaban [Eliquis] 5 mg PO BID #60 tablet 05/06/16 [Rx] Atorvastatin [Lipitor] 40 mg PO HS tablet 05/06/16 [Rx] Metoprolol [Lopressor] 25 mg PO BID #60 tablet 05/06/16 [Rx] Acetaminophen [Tylenol] 500 mg PO Q6H PRN 01/02/17 [History] Gabapentin [Neurontin] 300 mg PO TID 01/02/17 [History] LevETIRAcetam [Keppra] 500 mg PO BID 01/02/17 [History] dilTIAZem HCl [Diltiazem 24Hr ER] 120 mg PO DAILY 06/20/17 [History] 3 Allergy/AdvReac Type Severity Reaction Status Date / Time No Known Allergies Allergy Verified 01/02/17 18:08 All Systems Review: The remainder of the systems were reviewed and are negative - Cardiovascular Cardiovascular: as per HPI, rapid heart rate Physical Examination Vital Signs, Last 4 Hours Temp Pulse Resp BP Pulse Ox 06/21/17 11:10 97.8 F 63 16 105/55 95 General: Conversant, No Apparent Distress HEENT: Atraumatic, Normocephaly, Mucus Membranes Moist Neck: No JVD, Normal carotid pulses Cardiac: Reg Rate and Rhythm, Normal S1 and S2, No Murmur Lungs: Normal Breath Sounds, No Wheeze, Rales, Rhonchi Neuro: Alert and responsive, No focal deficits noted Abdomen: Soft, Non-Tender Skin: No rashes noted on visualized skin Musculoskeletal: No Chest Wall Tenderness Extremities: No Clubbing, No Cyanosis, No Edema, Normal Pulses Results 06/20/17 08:49 06/21/17 03:02 Lab Results Active Medications Acetaminophen (Tylenol) 650 mg PO Q6HR PRN PRN Reason: Mild Pain/Fever Stop: 08/29/18 11:26 Apixaban (Eliquis) 5 mg PO BID [facility] Stop: 12/20/17 21:01 Last Admin: 06/21/17 10:29 Dose: 5 mg Atorvastatin Calcium (Lipitor) 40 mg PO HS [facility] Stop: 12/20/17 21:01 Last Admin: 06/20/17 21:46 Dose: 40 mg Folic Acid (Folic Acid) 1 mg PO DAILY [facility] Stop: 12/21/17 09:01 Last Admin: 06/21/17 10:29 Dose: 1 mg Gabapentin (Neurontin) 300 mg PO TID [facility] Stop: 12/20/17 15:01 Last Admin: 06/21/17 10:29 Dose: Not Given Levetiracetam (Keppra) 500 mg PO BID [facility] Stop: 12/20/17 21:01 Last Admin: 06/21/17 10:29 Dose: 500 mg Lorazepam (Ativan) 1 mg IVP Q1H PRN PRN Reason: Alcohol Withdrawal Stop: 12/21/17 08:03 Lorazepam (Ativan) 2 mg IVP Q4HR PRN PRN Reason: CIWA Score of 10-21 Stop: 12/21/17 08:03 Lorazepam (Ativan) 4 mg IVP Q4HR PRN PRN Reason: CIWA Score of 22-45 Stop: 12/21/17 08:03 Metoprolol Tartrate (Lopressor) 25 mg PO BID [facility] Stop: 12/20/17 21:01 Last Admin: 06/21/17 10:29 Dose: 25 mg Naloxone HCl (Narcan) 0.4 mg IVP Q2MIN PRN PRN Reason: SEE COMMENTS Stop: 12/20/17 11:26 Propafenone HCl (Rhythmol) 150 mg PO Q8H [facility] Stop: 12/21/17 11:01 Last Admin: 06/21/17 11:38 Dose: 150 mg Thiamine HCl (Vitamin B-1) 100 mg PO DAILY [facility] Stop: 12/21/17 09:01 Last Admin: 06/21/17 10:29 Dose: 100 mg Tramadol HCl (Ultram) 50 mg PO Q6HR PRN PRN Reason: Moderate Pain Stop: 12/20/17 11:26 Laboratory Tests 06/20/17 06/20/17 06/20/17 08:49 08:49 08:49 Hgb 15.4 Potassium Creatinine Magnesium Troponin I < 0.03 TSH 1.604 06/20/17 06/20/17 06/21/17 14:59 21:15 03:02 Hgb Potassium Creatinine Magnesium Troponin I < 0.03 < 0.03 < 0.03 TSH 06/21/17 03:02 Hgb Potassium 4.1 Creatinine 1.16 Magnesium 1.9 Troponin I TSH - Imaging and Cardiology Chest Xray: report reviewed Echo: report reviewed - EKG Interpretation EKG results cardiology: personally reviewed (ECG with a.fib RVR HR 148.), other (Telemetry reviewed with average HR previous 12 hours noted to be 64, SR. PVCs noted.) Consult Discharge Plan - Plan Referrals: Oz Azevedo DO [Primary Care Provider] - <Yan Gonzalez - Last Filed: 06/22/17 17:42> Date of Encounter: 06/22/17 - Attending Attestation I have personally performed a face to face evaluation on this patient. I have reviewed and agree with the care plan. History and Exam by me shows: Recurrent PAF, wa supposed to be on rythmol. Would restart rythmol. Assessment and Plan Discussion w patient/family: The assessment and plan as outlined above was discussed with the patient and/or family members who expressed understanding and agreement. All questions were answered. Thank you for involving us in the care of your patient. Please call with any questions. History of Present Illness History of present illness: Mr. Betancur is a 61 year old male All Systems Review: The remainder of the systems were reviewed and are negative Results 06/22/17 10:44 06/22/17 10:44 Lab Results 06/22/17 06/22/17 10:44 10:44 WBC 7.5 Hgb 13.9 D Hct 43.0 Plt Count 174 Sodium 140 Potassium 4.5 Chloride 106 Carbon Dioxide 30 H BUN 14 Creatinine 1.09 Glucose 88 Calcium 9.5
--- NOTE | 2017-06-21 19:03 | Internal Med Progress Note ---
Date of Encounter: 06/21/17 Time of Encounter: 11:00 - Assessment and plan (1) Atrial fibrillation with controlled ventricular response Current Visit: Yes Status: Acute Assessment and plan: -Cardiology following with recommendations to resume Rythmol 150 mg every 8 hours and monitor (2) Hyperlipidemia Current Visit: Yes Status: Chronic Assessment and plan: Continue statin Qualifiers: Hyperlipidemia type: unspecified Qualified Code(s): E78.5 - Hyperlipidemia , unspecified (3) Seizures Current Visit: Yes Status: Chronic Assessment and plan: Continue home medications (4) DVT prophylaxis Current Visit: No Status: Acute Assessment and plan: on Eliquis - Subjective Interval history: Patient with known atrial fibrillation with RVR; cardiology following No acute events overnight - Constitutional Vitals: Temp Pulse Resp BP Pulse Ox 97.5 F L 75 16 107/69 98 06/21/17 15:28 06/21/17 15:28 06/21/17 15:28 06/21/17 15:28 06/21/17 15:28 General appearance: Present: no acute distress - Respiratory Respiratory exam: Present: CTAB. Absent: accessory muscle use, rales, rhonchi, wheezes - Cardiovascular Cardiovascular exam: Present: RRR, +S1, +S2. Absent: diastolic murmur, gallop, rubs, systolic murmur Internal Medicine: Result - Labs CBC & Chem 7: 06/20/17 08:49 06/21/17 03:02 Labs: BMP 06/21/17 03:02 Sodium 142 Potassium 4.1 Chloride 110 H Carbon Dioxide 28 BUN 18 Creatinine 1.16 Glucose 102 Calcium 9.1 Cardiac Enzymes 06/20/17 06/21/17 Range/Units 21:15 03:02 Troponin I < 0.03 < 0.03 (< 0.04) ng/mL - ABG Interpretation ABG results: PT/INR, D-dimer PT 12.6 Seconds (9.4-12.1) H 06/20/17 08:49 Consult Discharge Plan - Plan Referrals: Oz Azevedo DO [Primary Care Provider] -
[2017-06-22] MEDS ORDERED: *HR* Metoprolol 5 MG/5 ML VIAL IVP ONE (01:58)
--- NOTE | 2017-06-22 03:38 | Event Note ---
Date of Encounter: 06/22/17 Time of Encounter: 03:35 61M c Hx of afib c RVR on anticoagulation. Previously on Cardizem drip transitioned to Rythmol. Patient went back into a fib this evening. Patient had received 2 doses of rythmol and was in sinus rhythm previously. Gave 5mg IV lopressor and received his 3rd scheduled dose of rythmol. Patient stayed in a fib with RVR in the 140s-150s. Started patient on Cardiazem drip with instructions to titrate per protocol. Patient is asymptomatic and BP is stable.
[2017-06-22] MEDS: Thiamine (B-1) 100 MG TABLET PO SCH (07:57)
[2017-06-22] MEDS: Apixaban 5 MG TABLET PO SCH (07:57)
[2017-06-22] MEDS: levETIRAcetam 250 MG TABLET PO SCH (07:57)
[2017-06-22] MEDS: Folic Acid 1 MG TABLET PO SCH (07:57)
[2017-06-22] MEDS: Gabapentin 300 MG CAPSULE PO SCH (07:57)
[2017-06-22 11:01] LABS: Basophils # 0.1 K/mcL (0.0-0.2); Basophils % 0.8 %; Eosinophils # 0.1 K/mcL (0.0-0.6); Eosinophils % 0.9 %; Hemoglobin 13.9 g/dL (12.9-16.9); Immature Granulocytes % 0.4 % (0-4); Lymphocytes # 0.8 K/mcL (0.6-4.6); Lymphocytes % 10.2 %; Mean Corpuscular HGB Conc 32.3 g/dL (31.6-35.5); Mean Corpuscular Hemoglobin 30.3 pg (28.0-33.3); Mean Corpuscular Volume 93.9 fL (83.0-100.0); Mean Platelet Volume 10.3 fL (9.4-12.4); Monocytes # 0.4 K/mcL (0.0-1.3); Monocytes % 5.8 %; Neutrophils # 6.2 K/mcL (1.6-8.9); Platelet Count 174 K/mcL (140-400); Red Blood Count 4.58 M/mcL (4.19-5.50); Segmented Neutrophils % 81.9 %
[2017-06-22 11:21] LABS: BUN/Creatinine Ratio 13 (6-26); Blood Urea Nitrogen 14 mg/dL (8-23); Calcium 9.5 mg/dL (8.6-10.3); Carbon Dioxide 30 mEq/L (23-29); Chloride 106 mEq/L (98-107); Glucose 88 mg/dL (70-105); Osmolality,Calculated 290 (280-300); Potassium 4.5 mEq/L (3.5-5.1); Sodium 140 mEq/L (136-145); eGFR For Non-African Americans > 60 (> 60)
[2017-06-22 11:50] VITALS: BP 104/65
--- NOTE | 2017-06-22 11:51 | Electrophysiology ProgressNote ---
Date of Encounter: 06/22/17 Time of Encounter: 09:30 Assessment and Plan (1) Paroxysmal atrial fibrillation Current Visit: Yes Status: Chronic Per cardiology: -Known PAF. Previously on rhythmol, however stopped taking due to no refills given at time of discharge. -Was a.fib RVR during outpateint cardiology visit and was recommended for ER evaluation. -Was given cardizem in ER, converted to SR, however went back into a.fib last night. -Now back on cardizem drip. s/p 3 total doses of rhythmol. -ECG on admisison with a.fib RVR HR 148, QRS 105ms. -ECG today with a.fib RVR, HR 159. QRS 93ms. -On eliquis for anticoagulation. Denies missed doses. -TTE 12/2016 with LVEF 55-60%, mild biatrial enlargement, mild MR. -Discussed with Dr.John Gonzalez,recommend continuing rhythmol. PLan for possible DCCV in am. However when I discussed and reviewed with patient, patient is refusing to stay inpatient. Patient educated on risks of not remaining inpatient. Patient states understanding and accepts risk. Patient will be signing out AMA. Patient educated to return to ER for tachycardia at home or with any concerns. -Will sent RX for rhythmol to pharmacy. -Patient agreeable for outpatient ECG on Monday. 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 Discussion w patient/family: The assessment and plan as outlined above was discussed with the patient who expressed understanding and agreement. All questions were answered. Thank you for involving us in the care of your patient. Please call with any questions. Discussed and reviewed with Dr.John Gonzalez. Subjective Principal diagnosis: a.fib RVR Interval history: Patient back in atrial fibrillation. Currently on cardizem drip. Patient states he feels well today. Denies complaints. Objective Vital Signs, Last 4 Hours Temp Pulse Resp BP Pulse Ox 06/22/17 09:15 98.9 F 104 18 100/63 94 06/22/17 08:00 119 General: Conversant, No Apparent Distress HEENT: Atraumatic, Normocephaly, Mucus Membranes Moist Neck: No JVD, Normal carotid pulses Cardiac: Normal S1 and S2, No Murmur, Other (Irregularly irregular) Lungs: Normal Breath Sounds, No Wheeze, Rales, Rhonchi Neuro: Alert and responsive, No focal deficits noted Abdomen: Soft, Non-Tender Skin: No rashes noted on visualized skin Musculoskeletal: No Chest Wall Tenderness Extremities: No Clubbing, No Cyanosis, No Edema, Normal Pulses Results 06/20/17 08:49 06/22/17 10:44 Lab Results Impressions Chest X-Ray 06/20/17 08:34 IMPRESSION: No acute cardiopulmonary process. D/ / 06/20/2017 10:40:41 Marshall Benavides MD / marcia Interpreting Provider: Marshall Benavides MD Active Medications Acetaminophen (Tylenol) 650 mg PO Q6HR PRN PRN Reason: Mild Pain/Fever Stop: 12/20/17 11:26 Apixaban (Eliquis) 5 mg PO BID [facility] Stop: 12/20/17 21:01 Last Admin: 06/22/17 07:57 Dose: 5 mg Atorvastatin Calcium (Lipitor) 40 mg PO HS [facility] Stop: 12/20/17 21:01 Last Admin: 06/21/17 20:47 Dose: 40 mg Folic Acid (Folic Acid) 1 mg PO DAILY [facility] Stop: 12/21/17 09:01 Last Admin: 06/22/17 07:57 Dose: 1 mg Gabapentin (Neurontin) 300 mg PO TID [facility] Stop: 12/20/17 15:01 Last Admin: 06/22/17 07:57 Dose: 300 mg Diltiazem HCl 125 mg/ Sodium (Chloride) 125 mls @ 5 mls/hr IVC .Q24H [facility]; 5 MG/ HR PRN Reason: Protocol Stop: 12/22/17 03:46 Last Titration: 06/22/17 11:47 Dose: 2.5 mg/hr, 2.5 mls/hr Levetiracetam (Keppra) 500 mg PO BID [facility] Stop: 12/20/17 21:01 Last Admin: 06/22/17 07:57 Dose: 500 mg Lorazepam (Ativan) 1 mg IVP Q1H PRN PRN Reason: Alcohol Withdrawal Stop: 12/21/17 08:03 Lorazepam (Ativan) 2 mg IVP Q4HR PRN PRN Reason: CIWA Score of 10-21 Stop: 12/21/17 08:03 Lorazepam (Ativan) 4 mg IVP Q4HR PRN PRN Reason: CIWA Score of 22-45 Stop: 12/21/17 08:03 Metoprolol Tartrate (Lopressor) 25 mg PO BID [facility] Stop: 12/20/17 21:01 Last Admin: 06/22/17 07:57 Dose: Not Given Naloxone HCl (Narcan) 0.4 mg IVP Q2MIN PRN PRN Reason: SEE COMMENTS Stop: 12/20/17 11:26 Propafenone HCl (Rhythmol) 150 mg PO Q8H [facility] Stop: 12/21/17 11:01 Last Admin: 06/22/17 11:19 Dose: 150 mg Thiamine HCl (Vitamin B-1) 100 mg PO DAILY [facility] Stop: 12/21/17 09:01 Last Admin: 06/22/17 07:57 Dose: 100 mg Tramadol HCl (Ultram) 50 mg PO Q6HR PRN PRN Reason: Moderate Pain Stop: 12/20/17 11:26 Laboratory Tests 06/22/17 10:44 Potassium 4.5 Creatinine 1.09 - Imaging and Cardiology Chest Xray: report reviewed Stress Test: report reviewed Echo: report reviewed - EKG Interpretation EKG results cardiology: personally reviewed (ECG today with a.fib RVR, HR 159. QRS 93ms.), other (Telemetry reviewed with average HR previous 12 hours noted to be 107, atrial fibrillation. PVCs noted.) Consult Discharge Plan - Plan Referrals: Oz Azevedo DO [Primary Care Provider] -
--- NOTE | 2017-06-22 15:36 | Discharge Summary ---
Orders not resulted at time of discharge: Pending orders 06/22/17 06:00 ECG 12 lead ECG [ECG] AM 0600 Date of Encounter: 06/22/17 Time of Encounter: 11:00 - Discharge Diagnosis (1) Atrial fibrillation with controlled ventricular response Priority: Primary Status: Acute (2) Hyperlipidemia Priority: Secondary Status: Chronic Qualifiers: Hyperlipidemia type: unspecified Qualified Code(s): E78.5 - Hyperlipidemia , unspecified (3) Seizures Priority: Secondary Status: Chronic Hospital course: Patient is a 61-year-old male with past medical history significant for atrial fibrillation, CVA, hyperlipidemia and seizures who presented to the ER on from the cardiologists office due to noted atrial fibrillation with RVR. In the emergency room he was started on Cardizem drip and heart rate improved. Patient reported of running out of his cardiac medications for the last 6 months. Patient was admitted to the medical surgical floor for continued management. Patients hospital stay cardiology was consulted with recommendations to wean patient off the Cardizem drip and restart patient on Rythmol. Patient redevelop rapid ventricular rate and Cardizem drip was restarted. He did not want to stay to complete treatment for atrial fibrillation with RVR per cardiology recommendations and left AGAINST MEDICAL ADVICE. - Time Spent with Patient Total time spent providing and/or coordinating discharge services: Less than 30 minutes - Discharge Medications Home Medications: Apixaban [Eliquis] 5 mg PO BID #60 tablet 05/06/16 [Rx] Atorvastatin [Lipitor] 40 mg PO HS tablet 05/06/16 [Rx] Metoprolol [Lopressor] 25 mg PO BID #60 tablet 05/06/16 [Rx] Acetaminophen [Tylenol] 500 mg PO Q6H PRN 01/02/17 [History] Gabapentin [Neurontin] 300 mg PO TID 01/02/17 [History] LevETIRAcetam [Keppra] 500 mg PO BID 01/02/17 [History] dilTIAZem HCl [Diltiazem 24Hr ER] 120 mg PO DAILY 06/20/17 [History] Allergies/Adverse Reactions: 3 Allergy/AdvReac Type Severity Reaction Status Date / Time No Known Allergies Allergy Verified 01/02/17 18:08 Date of admission: 06/20/17 13:46 Primary care physician: Oz Azevedo DO Consults: 06/21/17 08:18 Consult to Electrophysiology (EP) [CONS] Routine Consulting Provider: Electrophysiology [place] Reason for Consult: afib Call Completed: Yes - Constitutional Vitals: Temp Pulse Resp BP Pulse Ox 98.2 F 124 14 104/65 97 06/22/17 11:42 06/22/17 11:42 06/22/17 11:42 06/22/17 11:42 06/22/17 11:42 General appearance: Present: no acute distress - Patient Status Disposition: Left Against Medical Advice Condition: Fair - Discharge Instructions Follow Up With: Oz Azevedo DO [Primary Care Provider] -
--- NOTE | 2017-06-23 09:49 | Electrocardiograph Report ---
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
--- NOTE | 2017-06-23 20:38 | Electrocardiograph Report ---
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
== END 2017-06-22 13:03 | disposition left against medical advice (07) ==
LOC: EMEROO 08:25 → 2ANU 08:25
PROVIDERS: ADMIT Internal Medicine; ATTEND Hospitalist

== ENCOUNTER 2020-07-24 09:38 | Observation (INO) ==
[2020-07-24 10:03] LABS: Hemoglobin 13.9 g/dL (12.9-16.9); Mean Corpuscular HGB Conc 33.1 g/dL (31.6-35.5); Mean Corpuscular Hemoglobin 31.5 pg (28.0-33.3); Mean Corpuscular Volume 95.2 fL (83.0-100.0); Mean Platelet Volume 10.2 fL (9.4-12.4); Platelet Count 210 K/mcL (140-400); Red Blood Count 4.41 M/mcL (4.19-5.50); Red Cell Distribution Width 13.2 % (11.5-14.5)
[2020-07-24 10:10] LABS: INR 2.3; Prothrombin Time 26.2 Seconds (9.4-12.1)
[2020-07-24 10:13] LABS: Activated Partial Thrombo Time 28.6 Seconds (26.0-36.0)
[2020-07-24 10:24] LABS: BUN/Creatinine Ratio 10 (6-26); Blood Urea Nitrogen 11 mg/dL (8-23); Calcium 9.2 mg/dL (8.6-10.3); Carbon Dioxide 27 mEq/L (23-29); Chloride 100 mEq/L (98-107); Glucose 123 mg/dL (70-105); Osmolality,Calculated 285 (280-300); Potassium 4.1 mEq/L (3.5-5.1); Sodium 137 mEq/L (136-145); Troponin I < 0.03 ng/mL (< 0.04); eGFR For African Americans > 60 (> 60); eGFR For Non-African Americans > 60 (> 60)
[2020-07-24] MEDS ORDERED: Naloxone 0.4 MG/ML INJ IVP PRN (11:09)
[2020-07-24] MEDS ORDERED: Ondansetron 4 MG/2 ML VIAL IVP PRN (11:09)
[2020-07-24] MEDS ORDERED: *HR* HYDROcodone/Acet 5/325 mg TABLET PO PRN (11:09)
[2020-07-24] MEDS ORDERED: Isovue-370 500 ML BOTTLE IVP ONE (11:11)
[2020-07-24] MEDS ORDERED: Perflutren Lipid Microsphere 1.3 ML in 0.9 % Sodium Chloride 8.7 ML IVP PRN (11:14)
[2020-07-24] MEDS: Aspirin Enteric Coated 81 MG Tablet PO SCH (14:31)
[2020-07-24] MEDS ORDERED: *HR* Warfarin 4 MG TABLET PO ONE (18:00)
[2020-07-24] MEDS ORDERED: Warfarin perPT PO SCH (18:00)
[2020-07-24] MEDS: levETIRAcetam 250 MG TABLET PO SCH (20:56)
[2020-07-24] MEDS: Ascorbic Acid 500 MG TABLET PO SCH (20:56)
[2020-07-25 00:50] LABS: RBC,Urine 0-3 per hpf (0-3); WBC,Urine 0-3 per hpf (0-3)
[2020-07-25 01:00] LABS: Bilirubin,Urine Negative (Negative); Blood,Urine Negative (Negative); Clarity,Urine Clear (Clear); Color,Urine Yellow (Yellow); Glucose,Urine (UA) Normal (Normal); Ketones,Urine Negative (Negative); Leukocyte Esterase,Urine Negative (Negative); Nitrite,Urine Negative (Negative); Protein,Urine Trace mg/dL (Neg-Trace); Specific Gravity,Urine > 1.030 (1.010-1.025); Squamous Epithelial Cell,Urine Few per hpf (None-Few); Urobilinogen,Urine Normal (Normal)
[2020-07-25 05:41] LABS: Basophils # 0.1 K/mcL (0.0-0.2); Basophils % 1.8 %; Eosinophils # 0.1 K/mcL (0.0-0.6); Eosinophils % 2.5 %; Hematocrit 39.1 % (37.5-50.1); Hemoglobin 12.9 g/dL (12.9-16.9); Immature Granulocytes % 0.4 % (0-4); Lymphocytes # 1.2 K/mcL (0.6-4.6); Lymphocytes % 22.8 %; Mean Corpuscular Hemoglobin 32.2 pg (28.0-33.3); Mean Corpuscular Volume 97.5 fL (83.0-100.0); Mean Platelet Volume 10.2 fL (9.4-12.4); Monocytes # 0.7 K/mcL (0.0-1.3); Monocytes % 13.6 %; Platelet Count 164 K/mcL (140-400); Red Blood Count 4.01 M/mcL (4.19-5.50); Red Cell Distribution Width 13.3 % (11.5-14.5); Segmented Neutrophils % 58.9 %; White Blood Count 5.1 K/mcL (4.3-11.1)
[2020-07-25 05:47] LABS: Prothrombin Time 22.9 Seconds (9.4-12.1)
[2020-07-25 05:58] LABS: Alanine Aminotransferase 41 Units/L (7-52); Albumin/Globulin Ratio 1.4 (1.1-2.2); Alkaline Phosphatase 77 Units/L (34-104); Aspartate Amino Transferase 47 Units/L (13-39); BUN/Creatinine Ratio 12 (6-26); Bilirubin,Total 0.7 mg/dL (0.3-1.0); Blood Urea Nitrogen 14 mg/dL (8-23); Calcium 9.1 mg/dL (8.6-10.3); Carbon Dioxide 26 mEq/L (23-29); Chloride 104 mEq/L (98-107); Chol/HDL Ratio 2.7 (0-4.9); Cholesterol 217 mg/dL (< 200); Globulin 2.8 g/dL (2.4-3.5); Glucose 103 mg/dL (70-105); HDL Cholesterol 79 mg/dL (40-59); LDL Cholesterol,Calculated 118 mg/dL (< 100); Magnesium 2.2 mg/dL (1.6-2.6); Osmolality,Calculated 287 (280-300); Phosphorous 3.3 mg/dL (2.7-4.5); Potassium 3.6 mEq/L (3.5-5.1); Sodium 138 mEq/L (136-145); Total Protein 6.8 g/dL (6.4-8.9); Triglycerides 98 mg/dL (< 150); eGFR For African Americans > 60 (> 60); eGFR For Non-African Americans > 60 (> 60)
[2020-07-25] MEDS: Ascorbic Acid 500 MG TABLET PO SCH (08:11)
[2020-07-25] MEDS: levETIRAcetam 250 MG TABLET PO SCH (08:11)
[2020-07-25] MEDS: Aspirin Enteric Coated 81 MG Tablet PO SCH (08:11)
[2020-07-25 08:13] VITALS: BP 130/72
[2020-07-25] MEDS ORDERED: *HR* Amiodarone 200 MG TABLET PO SCH (09:00)
[2020-07-25] MEDS ORDERED: *HR* Warfarin 4 MG TABLET PO ONE (18:00)
== END 2020-07-25 13:47 | disposition home or self-care (01) ==
LOC: EMEROOARM 09:38 → 3BNU 09:38 → SUATTDRO 11:27 → 3BNU 12:13
PROVIDERS: ADMIT Internal Medicine; ATTEND Registered Nurse